=== PATIENT | female | born 1945 | race Caucasian/White ===

== ENCOUNTER 2017-05-03 15:35 | Emergency (ER) | payer MEDICARE, OTHER ==
[2017-05-03 15:59] VITALS: BP 174/72
[2017-05-03] MEDS ORDERED: HYDROmorphone 0.5 MG/0.5 ML Syringe IM ONE (16:12)
--- NOTE | 2017-05-03 17:14 | EDM.PDOC ---
ED HPI GENERAL MEDICAL PROBLEM - General Chief Complaint: Lower Extremity Injury/Pain Stated Complaint: RIGHT HIP PAIN Time Seen by Provider: 05/03/17 15:50 Source of Information: Reports: Patient History Limitations: Reports: No Limitations - History of Present Illness INITIAL COMMENTS - FREE TEXT/NARRATIVE: pt fell on thu and she sat flat on her butt. She did not have alot of pain after the fall. She started to have pain on sat. Today she had trouble getting up and down and was quite uncomfortabl. She is having difficulty putting weight on the rt leg. Onset: Other ( pain started sat. ) Duration: Hour(s): Location: Reports: Lower Extremity, Right, Other ( She also has pain going over the rt buttock like a sciatic pain. ) Associated Symptoms: Reports: No Other Symptoms - Related Data Allergies Allergy/AdvReac Type Severity Reaction Status Date / Time No Known Allergies Allergy Verified 01/17/13 16:52 Home Meds: Home Meds *B-12 Subcutaneous Injection 01/17/13 [History] Aspirin 325 mg PO DAILY 01/17/13 [History] Ezetimibe [Zetia] 10 mg PO DAILY 01/17/13 [History] Latanoprost [Xalatan 0.005% Ophth Soln] 2.5 ml OP DAILY 01/17/13 [History] Levothyroxine 75 mcg PO 01/17/13 [History] Meloxicam [Mobic] 7.5 mg PO DAILY 01/17/13 [History] atorvaSTATin [Lipitor] 80 mg PO BEDTIME 01/17/13 [History] Pantoprazole Sodium [Protonix] 05/03/17 [History] Past Medical History Gastrointestinal History: Reports: GERD Psychiatric History: Reports: None Endocrine/Metabolic History: Reports: Hypothyroidism - Past Surgical History HEENT Surgical History: Reports: Tonsillectomy GI Surgical History: Reports: Cholecystectomy Female Surgical History: Reports: Cystectomy, Hysterectomy Social & Family History - Tobacco Use Smoking Status *Q: Never Smoker Years of Tobacco use: 40 Used Tobacco, but Quit: Yes Month Tobacco Last Used: 2010 Second Hand Smoke Exposure: No - Alcohol Use Days Per Week of Alcohol Use: 7 Number of Drinks Per Day: 2 Total Drinks Per Week: 14 - Recreational Drug Use Recreational Drug Use: No Review of Systems - Review of Systems Review Of Systems: See Below Constitutional: Reports: No Symptoms Eyes: Reports: No Symptoms Ears: Reports: No Symptoms Nose: Reports: No Symptoms Mouth/Throat: Reports: No Symptoms Respiratory: Reports: No Symptoms Cardiovascular: Reports: No Symptoms GI/Abdominal: Reports: No Symptoms Genitourinary: Reports: No Symptoms Musculoskeletal: Reports: No Symptoms Skin: Reports: No Symptoms ED EXAM, GENERAL - Physical Exam Exam: See Below Free Text/Narrative:: pt arrived with pain in rt hip area and pain over the rt buttock. Exam Limited By: No Limitations General Appearance: Alert, Anxious, Moderate Distress Ears: Normal TMs Nose: Normal Inspection Throat/Mouth: Normal Inspection Head: Atraumatic Neck: Normal Inspection Respiratory/Chest: No Respiratory Distress Cardiovascular: Regular Rate, Rhythm GI/Abdominal: Soft, Non-Tender Rectal (Female) Exam: Deferred Back Exam: Normal Inspection Extremities: Other (pt is tender over the sciatic area in the rt . She is not particularly tender over the rt hip capsule. She is able to straight leg raise the rt leg with some pain but not real severe. i) Neurological: Alert, Oriented Course - Vital Signs Last Recorded V/S: Last Vital Signs Temp 37.1 C 05/03/17 16:14 Pulse 91 05/03/17 16:14 Resp 16 05/03/17 16:14 BP 174/72 H 05/03/17 16:14 Pulse Ox 94 L 05/03/17 16:14 - Orders/Labs/Meds Orders: Active Orders 24 hr Category Date Time Status Hip Min 2V or 3V w Pelvis Rt [CR] Stat Exams 05/03/17 16:08 Taken Lumbar Spine Min 4V [CR] Stat Exams 05/03/17 16:11 Taken Meds: Medications Discontinued Medications Generic Name Dose Route Start Last Admin Trade Name Freq PRN Reason Stop Dose Admin Hydromorphone HCl 0.5 mg 05/03/17 16:12 05/03/17 16:18 Dilaudid IM 05/03/17 16:13 0.5 mg ONETIME ONE Administration - Re-Assessments/Exams Free Text/Narrative Re-Assessment/Exam: 05/03/17 17:33 rt hip has been pinned. There is no evidence of fracture in the hip or pelvis. lumbar spine was evaluated and there were no compression fractures present. she was given dilaudid .5 and had fair relif with that. Departure - Departure Time of Disposition: 17:15 Disposition: Home, Self-Care 01 Condition: Fair Clinical Impression: Sciatic nerve pain, Contusion of right hip - Discharge Information Instructions: Hip Pain, Sciatica Referrals: Josefina Michaels NP [Primary Care Provider] - Forms: ED Department Discharge Care Plan Goals: moist warm packs to hip and rt lower back, flexeril 10mg hs for spasm. [facility] [place] 5/ 326 q6h prn for pain, If pain is persistent suggest checking with Dr Jarvis. - My Orders Last 24 Hours: My Active Orders 05/03/17 16:08 Hip Min 2V or 3V w Pelvis Rt [CR] Stat 05/03/17 16:11 Lumbar Spine Min 4V [CR] Stat - Assessment/Plan Last 24 Hours: My Active Orders 05/03/17 16:08 Hip Min 2V or 3V w Pelvis Rt [CR] Stat 05/03/17 16:11 Lumbar Spine Min 4V [CR] Stat
--- NOTE | 2017-05-04 09:16 | CR ---
Lumbar Spine Min 4V HISTORY: pain over rt buttock FINDINGS: At L4-5 there is approximately 5 mm anterior subluxation. Fairly prominent narrowing of the disc space is present at L4-5. There is also narrowing of the disc space at L5-S1 and mild narrowing at L3-4. Small anterior aspects can be seen in each level L2-3 through L5-S1. There is no compressio n fracture. Scattered facet arthropathy is present. Pars interarticularis defects cannot be definitel y identified on the oblique views. Prominent atherosclerotic calcification is seen in the distal abdo cl aorta. There is no aneurysmal dilatation. IMPRESSION: 1. Degenerative and hypertrophic changes lumbar spine. 2. Grade 1 spondylolisthesis L4-5. 3. Prominent atherosclerotic calcification is noted diffusely along the abdominal aorta.
--- NOTE | 2017-05-04 09:21 | CR ---
Hip Min 2V or 3V w Pelvis Rt HISTORY: severe hip pain. FINDINGS: Bony structures are osteopenic. There is plate and screw fixation of an old healed subtroch anteric fracture proximal right femur. Degenerative narrowing at the right hip joint is seen with sma ll acetabular osteophytes. No acute fracture or dislocation can be identified. I see no joint effusio n. IMPRESSION: Old healed right hip fracture with internal fixation. Osteopenia. Moderate degenerative c hanges right hip. No acute fracture or dislocation is identified.
== END 2017-05-03 17:53 | disposition home or self-care (01) ==
LOC: JP.ED 15:35
DX: S70.01XA Contusion of right hip, initial encounter (principal); Z79.899 Other long term (current) drug therapy; Z79.82 Long term (current) use of aspirin; W19.XXXA Unspecified fall, initial encounter
CPT/HCPCS: 72110; 73502; 96372; 99284; J1170; 99283

== ENCOUNTER 2017-05-05 10:53 | Emergency (ER) | payer MEDICARE, OTHER ==
[2017-05-05] MEDS ORDERED: HYDROmorphone 0.5 MG/0.5 ML Syringe IM ONE (12:10)
[2017-05-05] MEDS ORDERED: HYDROmorphone 0.5 MG/0.5 ML Syringe IVPUSH ONE (12:10)
[2017-05-05] MEDS ORDERED: HYDROmorphone 0.5 MG/0.5 ML Syringe ONE (12:16)
[2017-05-05 17:18] VITALS: BP 167/87
--- NOTE | 2017-05-06 09:19 | CR ---
Lumbar Spine 2 or 3V HISTORY: PAIN FINDINGS: Flexion and extension views of the lumbar spine are compared with lumbar spine exam dated 07/04/2016. Redemonstrated is grade 1 spondylolisthesis at L4-5 and L5-S1 with 5-6 mm anterior subluxa tion at each level. Alignment remains stable with flexion and extension. No compression fracture is i dentified. Degenerative disc space narrowing is noted at L3-4, L4-5, and L5-S1. Small anterior osteop hytes are present diffusely. Remainder of the lumbar spine is stable. Prominent atherosclerotic calci fication seen diffusely along the lower thoracic and abdominal aorta extending into the common iliac arteries. IMPRESSION: Grade 1 spondylolisthesis at L4-5 and L5-S1 appears similar to the exam of 05/03/2017. I see no significant change in subluxation with flexion and extension.
== END 2017-05-05 17:18 | disposition home or self-care (01) ==
LOC: JP.ED 10:53
DX: S70.01XA Contusion of right hip, initial encounter (principal); M51.9 Unspecified thoracic, thoracolumbar and lumbosacral intervertebral disc disorder; E03.9 Hypothyroidism, unspecified; E78.00 Pure hypercholesterolemia, unspecified; W19.XXXA Unspecified fall, initial encounter
CPT/HCPCS: 36415; 72100; 80048; 96374; 99284; J1170; 99283

== ENCOUNTER 2017-05-19 16:52 | Inpatient (IN) | payer MEDICARE, OTHER ==
[2017-05-19] MEDS ORDERED: Sennosides 8.6 MG Tab PO PRN (17:10)
[2017-05-19] MEDS ORDERED: Naloxone 0.4 MG/ML SDV IVPUSH PRN (17:10)
[2017-05-19] MEDS ORDERED: Ondansetron 4 MG/2 ML SDV IVPUSH PRN (17:10)
[2017-05-19] MEDS ORDERED: Aluminum Hydroxide/Magnesium Hydroxide/Simethicone Susp 30 ML Cup PO PRN (17:10)
[2017-05-19] MEDS ORDERED: Sodium Chloride 0.9% 10 ML Syringe FLUSH PRN (17:10)
[2017-05-19] MEDS ORDERED: diphenhydrAMINE 25 MG Cap PO PRN (17:10)
[2017-05-19] MEDS ORDERED: Sodium Chloride 0.9% 1,000 ML IV SCH (17:15)
--- NOTE | 2017-05-19 17:44 | PCM.HP ---
H&P History of Present Illness - General Admit Problem/Dx: Admission Diagnosis/Problem Admission Diagnosis/Problem Lumbar back pain with radiculopathy affecting left lower extremity Source of Information: Patient History Limitations: Reports: No Limitations - History of Present Illness Onset of Symptoms: Reports: Gradual Duration of Symptoms: Reports: Week(s): Location: Reports: Lower Extremity, Left, Lower Extremity, Right Quality: Reports: Ache, Pressure, Sharp, Stabbing Severity: Severe Improves with: Reports: None Worsens with: Reports: Movement - Related Data Allergies/Adverse Reactions: Allergies Allergy/AdvReac Type Severity Reaction Status Date / Time No Known Allergies Allergy Verified 05/07/17 11:05 Home Medications: Home Meds Ezetimibe [Zetia] 10 mg PO DAILY 01/17/13 [History] Latanoprost [Xalatan 0.005% Ophth Soln] 1 drop EYERT DAILY 01/17/13 [History] Levothyroxine 75 mcg PO DAILY 01/17/13 [History] Meloxicam [Mobic] 7.5 mg PO DAILY 01/17/13 [History] atorvaSTATin [Lipitor] 80 mg PO BEDTIME 01/17/13 [History] Pantoprazole Sodium [Protonix] 20 mg PO DAILY 05/03/17 [History] Acetaminophen [Tylenol Extra Strength] 1,000 mg PO Q8H PRN 05/06/17 [History] Acetaminophen/HYDROcodone [[place] 325-5 MG] 1 tab PO Q6H PRN 05/06/17 [History] Cyanocobalamin (Vitamin B12) [Vitamin B12] 1,000 mcg IM .MONTHLY 05/06/17 [ History] Hydrochlorothiazide [Hydrochlorothiazide] 25 mg PO DAILY 05/06/17 [History] Past Medical History Gastrointestinal History: Reports: GERD Musculoskeletal History: Reports: Back Pain, Chronic Psychiatric History: Reports: None Endocrine/Metabolic History: Reports: Hypothyroidism - Past Surgical History HEENT Surgical History: Reports: Tonsillectomy GI Surgical History: Reports: Cholecystectomy Female Surgical History: Reports: Cystectomy, Hysterectomy Social & Family History - Tobacco Use Smoking Status *Q: Former Smoker Years of Tobacco use: 40 Used Tobacco, but Quit: Yes Month Tobacco Last Used: 13 years ago Second Hand Smoke Exposure: No - Caffeine Use Caffeine Use: Reports: None - Alcohol Use Days Per Week of Alcohol Use: 3 Number of Drinks Per Day: 1 Total Drinks Per Week: 3 - Recreational Drug Use Recreational Drug Use: No H&P Review of Systems - Review of Systems: Review Of Systems: See Below General: Reports: No Symptoms HEENT: Reports: No Symptoms Pulmonary: Reports: No Symptoms Cardiovascular: Reports: No Symptoms Gastrointestinal: Reports: No Symptoms Genitourinary: Reports: No Symptoms Musculoskeletal: Reports: Back Pain, Leg Pain, Muscle Pain, Muscle Stiffness Skin: Reports: No Symptoms Psychiatric: Reports: No Symptoms Neurological: Reports: No Symptoms Hematologic/Lymphatic: Reports: No Symptoms Immunologic: Reports: No Symptoms Exam - Exam Exam: See Below - Vital Signs Vital Signs: Last Vital Signs Temp 99.1 F 05/19/17 17:10 Pulse Resp 16 05/19/17 17:10 BP 121/53 L 05/19/17 17:10 Pulse Ox 95 05/19/17 17:10 Weight: 160 lb 14.999 oz - Exam General: Alert, Oriented HEENT: PERRLA, Conjunctiva Clear, Hearing Intact, Mucosa Moist & [place], Pupils Equal, Pupils Reactive Neck: Supple, Trachea Midline Lungs: Normal Respiratory Effort Back Exam: Normal Inspection, Decreased Range of Motion Extremities: Normal Inspection, Leg Pain, Limited Range of Motion Peripheral Pulses: 2+: Dorsalis Pedis (L), Dorsalis Pedis (R) Skin: Warm, Dry, Intact Neurological: Cranial Nerves Intact Neuro Extensive - Mental Status: Alert, Oriented x3, Normal Mood/Affect, Normal Cognition Neuro Extensive - Motor, Sensory, Reflexes: Abnormal Gait Psychiatric: Alert, Normal Affect Physical Exam Comments:: Normal sensation in bilateral lower extremities. Clonus negative. Torres's negative. Right straight leg raise positive. Left straight leg raise negative. Right hip flexion and knee extension 4 minus out of 5. *Q Meaningful Use (ADM) - VTE *Q VTE Criteria *Q: - Stroke *Q Stroke Criteria *Q: - AMI *Q AMI Criteria *Q: - Problem List (1) Spinal stenosis of lumbar region without neurogenic claudication SNOMED Code(s): 94436939 ICD Code: M48.061 - SPINAL STENOSIS, LUMBAR REGION WITHOUT NEUROGENIC KAYLEEN Status: Acute Current Visit: No (2) Spondylolisthesis, lumbar region SNOMED Code(s): 849405683223802 ICD Code: M43.16 - SPONDYLOLISTHESIS, LUMBAR REGION Status: Acute Current Visit: No Problem List Initiated/Reviewed/Updated: Yes Orders Last 24hrs: Active Orders 24 hr Category Date Time Status Patient Status [ADT] Routine ADT 05/19/17 17:05 Active Blood Glucose Check, Bedside [RC] QIDACANDBED Care 05/19/17 17:10 Active EKG Documentation Completion [RC] ASDIRECTED Care 05/19/17 17:25 Active Insert Urinary Catheter [OM.PC] ONETIME Care 05/19/17 17:15 Ordered Insert Urinary Catheter [OM.PC] ONETIME Care 05/20/17 17:15 Ordered Notify Provider Consults [RC] ASDIRECTED Care 05/19/17 17:16 Active Oxygen Therapy [RC] PRN Care 05/19/17 17:05 Active Peripheral IV Care [RC] . DIRECTED Care 05/19/17 17:11 Active RT BiPAP/CPAP [RC] ASDIRECTED Care 05/19/17 17:05 Active Turn, Cough, Deep Breathe [RC] .PRN Care 05/19/17 17:05 Active Urinary Catheter Assessment [RC] ASDIRECTED Care 05/19/17 17:08 Active Consult to Physician [CONS] Routine Cons 05/19/17 17:10 Ordered NPO After Midnight [Nothing per Oral After Midnight Diet 05/20/17 Breakfast Active Diet] [DIET] Regular Diet [DIET] Diet 05/19/17 Dinner Active CBC WITH AUTO DIFF [HEME] Stat Lab 05/19/17 17:10 Ordered COMPREHENSIVE METABOLIC PN,CMP [CHEM] Routine Lab 05/19/17 17:24 Ordered Alum Hydrox/Mag Hydrox/Simeth [Mag-Al Plus] Med 05/19/17 17:10 Ordered 15 ml PO Q4H PRN Ezetimibe [Zetia] Med 05/20/17 09:00 Ordered 10 mg PO DAILY Hydrochlorothiazide Med 05/20/17 09:00 Ordered 25 mg PO DAILY Latanoprost [Xalatan 0.005% Ophth Soln] Med 05/20/17 09:00 Ordered DOSE ml EYERT DAILY Levothyroxine Med 05/20/17 09:00 Ordered 75 mcg PO DAILY Magnesium Hydroxide [Milk of Magnesia] Med 05/19/17 17:10 Ordered 30 ml PO DAILY PRN Morphine Med 05/19/17 17:10 Ordered 2 mg IVPUSH Q2H PRN Naloxone [Narcan] Med 05/19/17 17:10 Ordered 0.2 mg IVPUSH ONETIME PRN Ondansetron [Zofran] Med 05/19/17 17:10 Ordered 4 mg IVPUSH Q4H PRN Pantoprazole Sodium [Protonix] Med 05/20/17 09:00 Ordered 20 mg PO DAILY Sennosides [Senna] Med 05/19/17 17:10 Ordered 8.6 mg PO BID PRN Sodium Chloride 0.9% [Normal Saline] 1,000 ml Med 05/19/17 17:15 Ordered IV .BOLUS Sodium Chloride 0.9% [Saline Flush] Med 05/19/17 17:10 Ordered 10 ml FLUSH ASDIRECTED PRN atorvaSTATin [Lipitor] Med 05/19/17 21:00 Ordered 80 mg PO BEDTIME diphenhydrAMINE [Benadryl] Med 05/19/17 17:10 Ordered 25 mg PO Q4H PRN Antiembolic Hose [OM.PC] Routine Oth 05/19/17 17:05 Ordered DME for Inpatients [OM.PC] Routine Oth 05/19/17 17:05 Ordered Encourage Fluids [OM.PC] Routine Oth 05/19/17 17:05 Ordered Peripheral IV Insertion Adult [OM.PC] Routine Oth 05/19/17 17:10 Ordered Sequential Compression Device [OM.PC] Routine Oth 05/19/17 17:05 Ordered Resuscitation Status Routine Resus Stat 05/19/17 17:05 Ordered EKG 12 Lead [EK] Routine Ther 05/19/17 17:24 Ordered Medication Orders Al Hydroxide/Mg Hydroxide (Mag-Al Plus) 15 ml PO Q4H PRN PRN Reason: Indigestion Diphenhydramine HCl (Benadryl) 25 mg PO Q4H PRN PRN Reason: Itching Ezetimibe (Zetia) 10 mg PO DAILY CARMEN Hydrochlorothiazide (Hydrochlorothiazide) 25 mg PO DAILY CARMEN Sodium Chloride (Normal Saline) 1,000 mls @ 75 mls/hr IV .BOLUS CRAMEN Latanoprost (Xalatan 0.005% Ophth Soln) ml EYERT DAILY CARMEN Levothyroxine Sodium (Levothyroxine) 75 mcg PO DAILY CARMEN Magnesium Hydroxide (Milk Of Magnesia) 30 ml PO DAILY PRN PRN Reason: Constipation Morphine Sulfate (Morphine) 2 mg IVPUSH Q2H PRN PRN Reason: Pain Naloxone HCl (Narcan) 0.2 mg IVPUSH ONETIME PRN PRN Reason: Oversedation Non-Formulary Medication (Atorvastatin [Lipitor]) 80 mg PO BEDTIME CARMEN Non-Formulary Medication (Pantoprazole Sodium [Protonix]) 20 mg PO DAILY CARMEN Ondansetron HCl (Zofran) 4 mg IVPUSH Q4H PRN PRN Reason: Nausea/Vomiting Senna (Senna) 8.6 mg PO BID PRN PRN Reason: Constipation Sodium Chloride (Saline Flush) 10 ml FLUSH ASDIRECTED PRN PRN Reason: Keep Vein Open Assessment/Plan Comment:: Assessment: Lumbar stenosis L3-4, L4-5, and L5-S1. Lumbar spondylolisthesis L4- 5 and L5-S1. Right lower extremity lumbar radiculopathy. Plan: After seeing the patient in clinic she did have an epidural steroid injection which only lasted for a short period of time. It did not help significantly. She was scheduled for an epidural steroid injection tomorrow. The pain was so bad that she could not walk. She was brought by squad to the hospital. I've admitted her for pain management overnight we will proceed with a posterior lumbar fusion from L3-S1 tomorrow morning. Will obtain preoperative laboratory testing as well as EKG. I have asked Dr. Torres to evaluate her preoperatively. She'll be nothing by mouth at midnight. I've explained the risks and benefits of the procedure to the patient. I've given her a lumbar consent to review. Also given her a lumbar spine packet. Will fit her for a brace after surgery tomorrow.
[2017-05-19] MEDS ORDERED: Potassium Chloride 20 MEQ Tab.ER PO ONE (19:09)
--- NOTE | 2017-05-19 19:15 | PCM.PN ---
- General Info Date of Service: 05/19/17 Functional Status: Reports: Tolerating Diet - Review of Systems Musculoskeletal: Reports: Back Pain, Leg Pain Systems Review Comment:: Margareth was admitted today for management of acute lower back pain and inability to walk because of the severity of the pain. She reports one week of progressive severe sharp pain in the middle of her lower back that radiates down the right leg. She has been taking [id number] medications as well as prescription nonsteroidals without any improvement. She has cut back on eating and drinking to avoid trips to the bathroom because of the severity of the pain. The pain has been progressively getting worse over the past week. She is not aware of any fevers or chills. She does not have any incontinence. Some recent difficulties with constipation though bowels have been moving better the past 2 days. No previous difficulties with anesthesia or surgical procedures. Functional status had been acceptable prior to the acute lower back pain that has limited her ability to get around. No shortness of breath or cough. - Patient Data Vitals - Most Recent: Last Vital Signs Temp 37.3 C 05/19/17 17:10 Pulse Resp 16 05/19/17 17:10 BP 121/53 L 05/19/17 17:10 Pulse Ox 95 05/19/17 17:10 Weight - Most Recent: 73 kg Lab Results Last 24 Hours: Laboratory Results - last 24 hr 05/19/17 05/19/17 Range/Units 17:45 17:45 WBC 11.2 H (4.5-11.0) K/uL RBC 4.59 (3.30-5.50) M/uL Hgb 15.5 H D (12.0-15.0) g/dL Hct 44.8 (36.0-48.0) % MCV 98 (80-98) fL MCH 34 H (27-31) pg MCHC 35 (32-36) % Plt Count 225 (150-400) K/uL Neut % (Auto) 76 H (36-66) % Lymph % (Auto) 12 L (24-44) % [place] % (Auto) 11 H (2-6) % Eos % (Auto) 1 L (2-4) % Baso % (Auto) 0 (0-1) % Sodium 137 L (140-148) mmol/L Potassium 3.3 L (3.6-5.2) mmol/L Chloride 94 L (100-108) mmol/L Carbon Dioxide 35 H (21-32) mmol/L Anion Gap 11.3 (5.0-14.0) mmol/L BUN 21 H (7-18) mg/dL Creatinine 0.7 (0.6-1.0) mg/dL Est Cr Clr Drug Dosing 60.09 mL/min Estimated GFR (MDRD) > 60 (>60) Glucose 122 H (74-106) mg/dL Calcium 9.3 (8.5-10.1) mg/dL Total Bilirubin 1.2 H D (0.2-1.0) mg/dL AST 93 H D (15-37) U/L ALT 193 H (12-78) U/L Alkaline Phosphatase 116 (46-116) U/L Total Protein 7.0 (6.4-8.2) g/dL Albumin 3.7 (3.4-5.0) g/dL Globulin 3.3 (2.3-3.5) g/dL Albumin/Globulin Ratio 1.1 L (1.2-2.2) Med Orders - Current: Current Medications Al Hydroxide/Mg Hydroxide (Mag-Al Plus) 15 ml PO Q4H PRN PRN Reason: Indigestion Atorvastatin Calcium (Lipitor) 80 mg PO BEDTIME CARMEN Diphenhydramine HCl (Benadryl) 25 mg PO Q4H PRN PRN Reason: Itching Ezetimibe (Zetia) 10 mg PO DAILY CARMEN Hydrochlorothiazide (Hydrochlorothiazide) 25 mg PO DAILY CARMEN Sodium Chloride (Normal Saline) 1,000 mls @ 75 mls/hr IV .BOLUS CARMEN Latanoprost (Xalatan 0.005% Oph Soln) 0 ml EYERT DAILY CARMEN Levothyroxine Sodium (Levothyroxine) 75 mcg PO DAILY CARMEN Magnesium Hydroxide (Milk Of Magnesia) 30 ml PO DAILY PRN PRN Reason: Constipation Morphine Sulfate (Morphine) 2 mg IVPUSH Q2H PRN PRN Reason: Pain Naloxone HCl (Narcan) 0.2 mg IVPUSH ONETIME PRN PRN Reason: Oversedation Non-Formulary Medication (Pantoprazole Sodium [Protonix]) 20 mg PO DAILY CARMEN Ondansetron HCl (Zofran) 4 mg IVPUSH Q4H PRN PRN Reason: Nausea/Vomiting Potassium Chloride (Klor-Con M20) 40 meq PO ONETIME ONE Stop: 05/19/17 19:10 Senna (Senna) 8.6 mg PO BID PRN PRN Reason: Constipation Sodium Chloride (Saline Flush) 10 ml FLUSH ASDIRECTED PRN PRN Reason: Keep Vein Open - Exam Quality Assessment: No: Supplemental Oxygen General: Alert, Oriented, Cooperative, No Acute Distress Neck: Supple Lungs: Clear to Auscultation, Normal Respiratory Effort Cardiovascular: Regular Rate, Regular Rhythm, No Murmurs GI/Abdominal Exam: Normal Bowel Sounds, Soft, Non-Tender, No Distention. No: Hepatomegaly Extremities: No Pedal Edema Skin: Warm, Dry Psy/Mental Status: Alert, Normal Affect - Problem List Review Problem List Initiated/Reviewed/Updated: Yes - My Orders Last 24 Hours: My Active Orders 05/19/17 19:09 Potassium Chloride [Klor-Con M20] 40 meq PO ONETIME ONE 05/20/17 07:00 Abdomen Ltd [US] Routine - Plan Plan:: ASSESSMENT AND PLAN - Acute lower back pain with lumbar spinal stenosis, spondylolisthesis and right lower leg radiculopathy - surgical intervention planned with the severity and progression of the pain over the past week. Currently comfortable as long she is resting in bed. No obvious contraindication for surgery and I do believe she is medically optimized at this time other than the mild hypokalemia which we will correct overnight. No history of cardiovascular issues. -Pain control -Patient medically optimized for planned surgical procedure tomorrow once potassium is corrected Hypokalemia - mild at this time and will be replaced overnight. -40 mEq of potassium -Repeat labs in the morning Essential hypertension - blood pressure has been well-controlled. -Continue home medications Transaminitis and elevated bilirubin - relatively mild elevations but new finding. Patient does have a history of consistent alcohol use. She is also on a statin medication. Also history of liver abscess. I think she would benefit from an ultrasound for further evaluation but this should not delay surgery. -Right upper quadrant ultrasound tomorrow Quintin Torres M.D.
[2017-05-19] MEDS: Morphine 4 MG/ML Syringe IVPUSH PRN ×2 (19:33→22:23)
[2017-05-19] MEDS: atorvaSTATin 20 MG Tab PO SCH (20:34)
[2017-05-20] MEDS: Morphine 4 MG/ML Syringe IVPUSH PRN ×2 (01:34→05:12)
[2017-05-20] MEDS ORDERED: Thrombin (Bovine) 5,000 Unit Kit ONE (07:05)
[2017-05-20] MEDS ORDERED: Povidone-Iodine 10% Soln 118.25 ML Bottle ONE (07:05)
[2017-05-20] MEDS ORDERED: Dexamethasone 4 MG/ML SDV ONE (07:30)
[2017-05-20] MEDS ORDERED: Propofol 1,000 MG/100 ML SDV ONE (07:30)
[2017-05-20] MEDS ORDERED: Ondansetron 4 MG/2 ML SDV ONE (07:30)
[2017-05-20] MEDS ORDERED: Propofol 200 MG/20 ML SDV ONE (07:30)
[2017-05-20] MEDS ORDERED: Rocuronium 50 MG/5 ML Vial ONE (07:30)
[2017-05-20] MEDS ORDERED: Sodium Chloride 0.9% 1,000 ML IV ONE (07:30)
[2017-05-20] MEDS ORDERED: fentaNYL 100 MCG/2 ML SDV ONE ×3 (07:30)
[2017-05-20] MEDS ORDERED: Midazolam 1 MG/ML 2 ML SDV ONE (07:30)
[2017-05-20] MEDS ORDERED: fentaNYL 250 MCG/5 ML SDV ONE (07:30)
[2017-05-20] MEDS ORDERED: ceFAZolin 1 GM in Premix Bag 1 BAG IV ONE (08:00)
[2017-05-20] MEDS ORDERED: Ropivacaine 49.25 ML, Ketorolac 30 MG, EPINEPHrine 0.5 MG, cloNIDine 80 MCG, Sodium Chl... INJECT ONE ×5 (08:00)
[2017-05-20] MEDS: Tranexamic Acid 730 MG in Sodium Chloride 0.9% 50 ML IV SCH ×2 (08:01→11:49)
[2017-05-20] MEDS ORDERED: Latanoprost 0.005% Ophth Soln 2.5 ML Bottle EYERT SCH (09:00)
[2017-05-20] MEDS ORDERED: Levothyroxine 75 MCG Tab PO SCH (09:00)
[2017-05-20] MEDS ORDERED: Lactated Ringers 300 ML IV ONE (10:15)
[2017-05-20] MEDS ORDERED: Vancomycin 1 GM SDV ONE (11:02)
[2017-05-20] MEDS ORDERED: Magnesium Hydroxide 400 MG/5 ML Susp 30 ML Cup PO STA (11:33)
[2017-05-20] MEDS ORDERED: HYDROmorphone 1 MG/ML Syringe IVPUSH PRN (11:33)
[2017-05-20] MEDS ORDERED: Aluminum Hydroxide/Magnesium Hydroxide/Simethicone Susp 30 ML Cup PO PRN (11:33)
[2017-05-20] MEDS ORDERED: Naloxone 0.4 MG/ML SDV IVPUSH PRN (11:33)
[2017-05-20] MEDS ORDERED: Zolpidem 5 MG Tab PO PRN (11:33)
[2017-05-20] MEDS ORDERED: Ondansetron 4 MG/2 ML SDV IVPUSH PRN (11:33)
[2017-05-20] MEDS ORDERED: Acetaminophen 1,000 MG in Premix Bag 1 BAG IV ONE (11:45)
[2017-05-20] MEDS ORDERED: Gelatin Sponge,Absorbable Pwd 1 GM Pkt ONE (12:09)
[2017-05-20] MEDS ORDERED: LORazepam 2 MG/ML SDV IVPUSH ONE (12:31)
[2017-05-20] MEDS: Dexamethasone 4 MG/ML 5 ML MDV IVPUSH SCH ×2 (12:44→20:05)
--- NOTE | 2017-05-20 14:10 | OR ---
DATE OF PROCEDURE: 05/20/2017 PREOPERATIVE DIAGNOSES: 1. L3-L4, L4-L5, and L5-S1 lumbar stenosis. 2. Lumbar spondylolisthesis, L4-L5 and L5-S1. 3. Lumbar radiculopathy, L3 through S1. POSTOPERATIVE DIAGNOSES: 1. L3-L4, L4-L5, and L5-S1 lumbar stenosis. 2. Lumbar spondylolisthesis, L4-L5 and L5-S1. 3. Lumbar radiculopathy, L3 through S1. PROCEDURES: 1. Transforaminal lumbar interbody fusion, L4-L5. 2. Posterior lateral fusion with instrumentation, L3-L4, L4-L5, and L5-S1. 3. Laminectomy, required an additional decompression L3-L4, L4-L5, and L5-S1. 4. Right facetectomy, L3-L4, L4-L5 and L5-S1. 5. Use of operative fluoroscopy. 6. Placement of interbody device at L4-L5. 7. Segmental instrumentation L3-L4, L4-L5, and L5-S1. SAP SENIOR DEVELOPER: SALUD Negrete. Physician billing and accounting staff assistant, Jo Ann Colunga NP, played an essential role in assisting in this case, helping to position the patient, retract structures as needed, as well as suturing and cutting sutures as indicated. Her presence improved patient's safety and decreased operative time. ANESTHESIA: General endotracheal intubation. FLUID: Lactated Ringer's solution. ESTIMATED BLOOD LOSS: 450 mL. COMPLICATIONS: None. SPECIMEN: None. DISCHARGE DISPOSITION: Stable to PACU. INDICATIONS: The patient is well known to me. We saw her in clinic. She had fallen about a month ago and we believed we could treat her non operatively. She underwent an epidural steroid injection last week, which really did not help very much. She was bedridden due to pain. We admitted her last night and consented her for the procedure. Preoperative imaging confirmed the above-mentioned diagnosis. Risks and benefits of the procedure were explained to the patient and her and informed consent was obtained. DESCRIPTION OF PROCEDURE: The patient was seen preoperatively by myself and the Anesthesia staff in the preop holding area, where the operative site was marked. She was brought to the operative suite by the Anesthesia staff, where general anesthesia was administered. A Snow catheter had already been placed. The fluoroscopy unit was draped in a sterile manner. The patient then had neuromonitoring leads placed, which were normal throughout the case. She was then flipped into a prone position on the Robin table. All extremities were found to be well padded. The patient was then prepped and draped in sterile manner. Time-out was called identifying the correct patient, correct procedure, the correct site, and antibiotics had begun within appropriate period of time. Midline incision was made over the spinous processes of L3-S1. This was confirmed via fluoroscopy. Bleeding during the case was controlled with Bovie electrocautery, bipolar electrocautery, and Aquamantys 5.0 unit. Cerebellar was initially used for retraction. I then went through the deep fascia over the spinous processes of L3, lamina, facets, pars, and down to the transverse processes and ala of S1. I then inserted two 75 mm and two 65 mm Versa-Trac retractor blades. I then cleared off the soft tissue down to the transverse processes. The bone was poor quality. There was transverse process fracture at the left of the L4 and then on the right L4 as well. We then placed screws on the right side first and then the left. This was done by identifying the pars going at the midpoint of the transverse process, drilling a hole at the level of the lateral aspect of the pars. Then, using a PediGuard from [employer], then confirming its placement on fluoroscopy followed by pedicle probe, followed by tap, followed by pedicle probe, followed by screw placement. All screws were 45 x 6.5 mm screws, [employer] Creo AMP. After doing the left to the right, we then tested our screws which all tested well within normal limits. I then took an AP radiograph to confirm good placement as well. We then focused on our decompressions by removing the interspinous ligaments and supraspinous ligaments, and then removing the inferior aspect of the superior spinous process of each level and then using Kerrison rongeurs approximately half of the lamina of the cranial vertebral lamina and then removing the flavum. I then performed full facetectomies on the right. This was performed using both rongeurs and Kerrisons. The nerve roots were identified at L3-L4, L4-L5, and L5-S1. I was then able to focus on placing the interbody device at L4-L5. I used bipolar electrocautery starting at the cranial aspect of the L5 pedicle as to avoid any nerve root injury. Then working medially and cranially over the disk space. I was then able to use a nerve root retractor to protect the dura. We then entered the disk space with a knife and then removed excess disk material. I used straight upgoing and downgoing and ring curettes. I then packed the interspace cranially with a bone funnel using bone which was grind up for autograft as well as Signify from [employer], which was mixed in with it. I then placed a 10 x 22, 10-degree spacer that expanded from 8 to 15 and expanded this under direct fluoroscopy. Just prior to this, we did encounter a durotomy laterally on the right side just above the axilla of the exiting nerve root. This was repaired with a 6-0 [place]-Jonah suture. Three Valsalvas were performed and 2 confirmed no leak. I then tried to do an interbody at L3-L4. I was able to clean the disk, but then the cranial endplate of L4 fractured, because of this I did not insert an interbody device. I then packed it with both my autograft and allograft mix as well as cancellous bone chips and confirmed that this looked appropriate on AP and lateral fluoroscopy. We then cleaned our screws and inserted 290 mm rods. I did have to bend these and then placed our end caps and then tightened to final torque specifications. We did use a hydropress operator on 2 of the screws on the left at L4 and L5. After this had been completed, we then copiously irrigated with 3 L Betadine infused irrigation, noted blood loss was 450 mL. After the irrigation, we again performed two more Valsalvas to confirm that there was no cerebrospinal fluid leak. We then placed some DuraSeal over the durotomy repair and then I decorticated the transverse processes both on the left and right, and then packed this with her allograft and autograft mix. We then applied some Gel-Foam powder as well as half a gram of vancomycin below the fascia. We then closed with #1 Stratafix, then irrigated with another liter of Betadine infused irrigation using a periarticular injection for pain control and then applied more Gel-Foam and the other half a gram of vancomycin and then closed with #2 Stratafix, then 3-0 Stratafix followed by glue and a sterile dressing. The patient was then flipped over into a supine position on the hospital bed and taken to the PACU in stable condition. Ke Helms DO /[id number]
[2017-05-20] MEDS: oxyCODONE 5 MG Tab PO PRN ×2 (15:05→19:07)
--- NOTE | 2017-05-20 15:23 | US ---
Abdomen Ltd INDICATION: transaminitis, elevated bilirubin COMPARISON: None FINDINGS: Fatty infiltration of the liver. No focal hepatic masses seen. Gallbladder surgically absent. No biliary distention. Abdominal aorta and inferior vena cava are unremarkable where visualized. Fatty infiltration of the pancreas. Right kidney unremarkable. No calculi or hydronephrosis. No ascites seen in the right upper quadrant. IMPRESSION: Fatty infiltration of the liver and pancreas. Gallbladder surgically absent.
[2017-05-20] MEDS ORDERED: Sodium Chloride 0.9% 1,000 ML IV SCH (15:45)
--- NOTE | 2017-05-20 15:57 | PCM.PN ---
- General Info Date of Service: 05/20/17 Functional Status: Reports: Pain Controlled - Review of Systems Gastrointestinal: Denies: Abdominal Pain Musculoskeletal: Reports: Back Pain Systems Review Comment:: no acute events overnight. Had successful surgery this morning with much improvement in her pain. Ultrasound of the abdomen showed fatty liver but no other acute findings. Vital signs have been stable. - Patient Data Vitals - Most Recent: Last Vital Signs Temp 37.6 C 05/20/17 15:07 Pulse 90 05/20/17 15:07 Resp 18 05/20/17 15:07 BP 115/56 L 05/20/17 15:07 Pulse Ox 95 05/20/17 15:07 Weight - Most Recent: 73 kg I&O - Last 24 Hours: Intake & Output 05/20/17 05/20/17 05/20/17 06:59 14:59 22:59 Intake Total 1202 125 Output Total 825 250 Balance 377 -125 Lab Results Last 24 Hours: Laboratory Results - last 24 hr 05/19/17 05/19/17 05/20/17 Range/Units 17:45 17:45 11:30 WBC 11.2 H (4.5-11.0) K/uL RBC 4.59 (3.30-5.50) M/uL Hgb 15.5 H D (12.0-15.0) g/dL Hct 44.8 (36.0-48.0) % MCV 98 (80-98) fL MCH 34 H (27-31) pg MCHC 35 (32-36) % Plt Count 225 (150-400) K/uL Neut % (Auto) 76 H (36-66) % Lymph % (Auto) 12 L (24-44) % Dawson % (Auto) 11 H (2-6) % Eos % (Auto) 1 L (2-4) % Baso % (Auto) 0 (0-1) % Sodium 137 L (140-148) mmol/L Potassium 3.3 L (3.6-5.2) mmol/L Chloride 94 L (100-108) mmol/L Carbon Dioxide 35 H (21-32) mmol/L Anion Gap 11.3 (5.0-14.0) mmol/L BUN 21 H (7-18) mg/dL Creatinine 0.7 (0.6-1.0) mg/dL Est Cr Clr Drug Dosing 60.09 mL/min Estimated GFR (MDRD) > 60 (>60) Glucose 122 H (74-106) mg/dL Calcium 9.3 (8.5-10.1) mg/dL Total Bilirubin 1.2 H D (0.2-1.0) mg/dL AST 93 H D (15-37) U/L ALT 193 H (12-78) U/L Alkaline Phosphatase 116 (46-116) U/L Total Protein 7.0 (6.4-8.2) g/dL Albumin 3.7 (3.4-5.0) g/dL Globulin 3.3 (2.3-3.5) g/dL Albumin/Globulin Ratio 1.1 L (1.2-2.2) Blood Type A POSITIVE Gel Antibody Screen Negative Med Orders - Current: Current Medications Al Hydroxide/Mg Hydroxide (Mag-Al Plus) 30 ml PO Q4H PRN PRN Reason: Indigestion Atorvastatin Calcium (Lipitor) 80 mg PO BEDTIME [facility] Last Admin: 05/19/17 20:34 Dose: 80 mg Dexamethasone (Dexamethasone) 10 mg IVPUSH Q6H [facility] Last Admin: 05/20/17 12:44 Dose: 10 mg Diazepam (Valium.) 5 mg PO Q6H PRN PRN Reason: Spasms Diphenhydramine HCl (Benadryl) 25 mg PO Q4H PRN PRN Reason: Itching Docusate Sodium (Colace) 100 mg PO BID [facility] Ezetimibe (Zetia) 10 mg PO DAILY [facility] Hydrochlorothiazide (Hydrochlorothiazide) 25 mg PO DAILY [facility] Hydromorphone HCl (Dilaudid) 1 mg IVPUSH Q2H PRN PRN Reason: Pain Stop: 05/21/17 11:34 Cefazolin Sodium/Dextrose 1 gm (/ Premix) 50 mls @ 100 mls/hr IV Q8H [facility] Stop: 05/21/17 06:59 Sodium Chloride (Normal Saline) 1,000 mls @ 125 mls/hr IV ASDIRECTED [facility] Latanoprost (Xalatan 0.005% Ophth Soln) 0 ml EYERT BEDTIME [facility] Levothyroxine Sodium (Levothyroxine) 75 mcg PO ACBREAKFAST [facility] Magnesium Hydroxide (Milk Of Magnesia) 30 ml PO DAILY PRN PRN Reason: Constipation Naloxone HCl (Narcan) 0.2 mg IVPUSH ASDIRECTED PRN PRN Reason: Oversedation Stop: 05/20/17 23:00 Ondansetron HCl (Zofran) 8 mg IVPUSH Q4H PRN PRN Reason: Nausea/Vomiting Oxycodone HCl (Oxycodone) 10 mg PO Q4H PRN PRN Reason: Pain Stop: 05/21/17 11:34 Last Admin: 05/20/17 15:05 Dose: 10 mg Oxycodone/Acetaminophen (Percocet 325-5 Mg) 2 tab PO Q4H PRN PRN Reason: Pain Pantoprazole Sodium (Protonix) 40 mg PO ACBREAKFAST [facility] Senna (Senna) 8.6 mg PO BID [facility] Sodium Chloride (Saline Flush) 10 ml FLUSH ASDIRECTED PRN PRN Reason: Keep Vein Open Zolpidem Tartrate (Ambien) 5 mg PO BEDTIME PRN PRN Reason: Sleep Discontinued Medications Ropivacaine 49.25 ml/Ketorolac Tromethamine 30 mg/Epinephrine HCl 0.5 mg/ Clonidine HCl 80 mcg/ Sodium Chloride 48.45 ml 0 ml INJECT ONETIME ONE Stop: 05/20/17 08:01 Last Admin: 05/20/17 08:39 Dose: 50 ml Gelatin (Gelfoam) 2 gm .ROUTE .STK-MED ONE Stop: 05/20/17 12:10 Sodium Chloride (Normal Saline) 1,000 mls @ 75 mls/hr IV .BOLUS [facility] Last Admin: 05/20/17 06:35 Dose: 75 mls/hr Tranexamic Acid 730 mg/ Sodium (Chloride) 57.3 mls @ 229.2 mls/hr IV Q3H [facility] Stop: 05/20/17 11:14 Last Admin: 05/20/17 11:49 Dose: 229.2 mls/hr Cefazolin Sodium/Dextrose 1 gm (/ Premix) 50 mls @ 100 mls/hr IV ONETIME ONE Stop: 05/20/17 08:29 Last Admin: 05/20/17 07:40 Dose: 100 mls/hr Acetaminophen 1,000 mg/ Premix 100 mls @ 400 mls/hr IV NOW ONE Stop: 05/20/17 11:59 Last Admin: 05/20/17 12:07 Dose: 400 mls/hr Lorazepam (Ativan) 1 mg IVPUSH ONETIME ONE Stop: 05/20/17 12:32 Last Admin: 05/20/17 12:38 Dose: 1 mg Magnesium Hydroxide (Milk Of Magnesia) 30 ml PO BID [facility] Stop: 05/20/17 11:34 Morphine Sulfate (Morphine) 2 mg IVPUSH Q2H PRN PRN Reason: Pain Last Admin: 05/20/17 05:12 Dose: 2 mg Naloxone HCl (Narcan) 0.2 mg IVPUSH ONETIME PRN PRN Reason: Oversedation Ondansetron HCl (Zofran) 4 mg IVPUSH Q4H PRN PRN Reason: Nausea/Vomiting Potassium Chloride (Klor-Con M20) 40 meq PO ONETIME ONE Stop: 05/19/17 19:10 Last Admin: 05/19/17 20:34 Dose: 40 meq Povidone Iodine (Betadine 10% Soln) Confirm Administered Dose 1 ml .ROUTE .STK- MED ONE Stop: 05/20/17 07:06 Last Admin: 05/20/17 08:22 Dose: 1 ml Senna (Senna) 8.6 mg PO BID PRN PRN Reason: Constipation Thrombin (Thrombin-Jmi) Confirm Administered Dose 15,000 unit .ROUTE .STK-MED ONE Stop: 05/20/17 07:06 Last Admin: 05/20/17 08:22 Dose: 15,000 unit Vancomycin HCl (Vancomycin) Confirm Administered Dose 1 gm .ROUTE .STK-MED ONE Stop: 05/20/17 11:03 - Exam Quality Assessment: No: Supplemental Oxygen General: Alert, Oriented, Cooperative, No Acute Distress Lungs: Normal Respiratory Effort GI/Abdominal Exam: No Distention Extremities: No Pedal Edema - Problem List Review Problem List Initiated/Reviewed/Updated: Yes - My Orders Last 24 Hours: My Active Orders 05/19/17 23:28 Heat Therapy [OM.PC] Routine - Plan Plan:: ASSESSMENT AND PLAN - Acute lower back pain with lumbar spinal stenosis, spondylolisthesis and right lower leg radiculopathy - pain and function better even shortly after surgical intervention. -Pain control -additional postop cares per orthopedic team Hypokalemia - better with supplementation -recheck in the morning Essential hypertension - blood pressure has been well-controlled. -Continue home medications Hepatic steatosis - relatively mild elevations but new finding. no acute findings on ultrasound. -Outpatient follow-up Quintin Torres M.D.
[2017-05-20] MEDS: ceFAZolin 1 GM in Premix Bag 1 BAG IV SCH ×2 (16:29→23:18)
[2017-05-20] MEDS: Hydrochlorothiazide 25 MG Tab PO SCH (16:39)
[2017-05-20] MEDS: Pantoprazole 40 MG Tab.CR PO SCH (16:39)
[2017-05-20] MEDS: Levothyroxine 75 MCG Tab PO SCH (16:41)
[2017-05-20] MEDS: Ezetimibe 10 MG Tab PO SCH (16:42)
[2017-05-20] MEDS: Magnesium Hydroxide 400 MG/5 ML Susp 30 ML Cup PO PRN (17:43)
[2017-05-20] MEDS: Acetaminophen 1,000 MG in Premix Bag 1 BAG IV SCH (17:43)
[2017-05-20] MEDS: atorvaSTATin 20 MG Tab PO SCH (20:04)
[2017-05-20] MEDS: Sennosides 8.6 MG Tab PO SCH (20:04)
[2017-05-20] MEDS: Docusate Sodium 100 MG Cap PO SCH (20:04)
[2017-05-20] MEDS: Latanoprost 0.005% Ophth Soln 2.5 ML Bottle EYERT SCH (20:05)
[2017-05-21] MEDS: Dexamethasone 4 MG/ML 5 ML MDV IVPUSH SCH ×4 (00:45→19:52)
[2017-05-21] MEDS: Acetaminophen 1,000 MG in Premix Bag 1 BAG IV SCH ×2 (00:46→05:50)
[2017-05-21] MEDS: oxyCODONE 5 MG Tab PO PRN ×2 (02:04→07:53)
[2017-05-21] MEDS: Diazepam 5 MG Tab PO PRN ×4 (02:36→23:42)
[2017-05-21] MEDS: ceFAZolin 1 GM in Premix Bag 1 BAG IV SCH (06:12)
[2017-05-21] MEDS: Levothyroxine 75 MCG Tab PO SCH (08:26)
[2017-05-21] MEDS: Pantoprazole 40 MG Tab.CR PO SCH (08:26)
[2017-05-21] MEDS: Sennosides 8.6 MG Tab PO SCH ×2 (08:33→21:15)
[2017-05-21] MEDS: Hydrochlorothiazide 25 MG Tab PO SCH (08:33)
[2017-05-21] MEDS: Docusate Sodium 100 MG Cap PO SCH ×2 (08:33→21:10)
--- NOTE | 2017-05-21 08:33 | PCM.PN ---
- General Info Functional Status: Reports: Pain Controlled - Review of Systems General: Reports: No Symptoms HEENT: Reports: No Symptoms Pulmonary: Reports: No Symptoms Cardiovascular: Reports: No Symptoms Gastrointestinal: Reports: No Symptoms Genitourinary: Reports: No Symptoms Musculoskeletal: Reports: Back Pain, Leg Pain Skin: Reports: No Symptoms Neurological: Reports: No Symptoms Psychiatric: Reports: No Symptoms - Patient Data Vitals - Most Recent: Last Vital Signs Temp 98.0 F 05/21/17 08:04 Pulse 90 05/21/17 08:04 Resp 18 05/21/17 08:04 BP 120/59 L 05/21/17 08:04 Pulse Ox 93 L 05/21/17 08:04 Weight - Most Recent: 160 lb 14.999 oz I&O - Last 24 Hours: Intake & Output 05/20/17 05/21/17 05/21/17 22:59 06:59 14:59 Intake Total 885 2431 Output Total 250 400 Balance 635 2031 Lab Results Last 24 Hours: Laboratory Results - last 24 hr 05/20/17 05/21/17 05/21/17 Range/Units 11:30 05:00 05:00 WBC 14.0 H (4.5-11.0) K/uL RBC 3.03 L (3.30-5.50) M/uL Hgb 10.0 L D (12.0-15.0) g/dL Hct 30.2 L (36.0-48.0) % MCV 100 H (80-98) fL MCH 33 H (27-31) pg MCHC 33 (32-36) % Plt Count 190 (150-400) K/uL Neut % (Auto) 91 H (36-66) % Lymph % (Auto) 3 L (24-44) % Graham % (Auto) 6 (2-6) % Eos % (Auto) 0 L (2-4) % Baso % (Auto) 0 (0-1) % Sodium 136 L (140-148) mmol/L Potassium 3.7 (3.6-5.2) mmol/L Chloride 99 L (100-108) mmol/L Carbon Dioxide 31 (21-32) mmol/L Anion Gap 9.7 (5.0-14.0) mmol/L BUN 19 H (7-18) mg/dL Creatinine 0.6 (0.6-1.0) mg/dL Est Cr Clr Drug Dosing 70.11 mL/min Estimated GFR (MDRD) > 60 (>60) Glucose 166 H (74-106) mg/dL Calcium 8.2 L (8.5-10.1) mg/dL Blood Type A POSITIVE Gel Antibody Screen Negative Med Orders - Current: Current Medications Al Hydroxide/Mg Hydroxide (Mag-Al Plus) 30 ml PO Q4H PRN PRN Reason: Indigestion Atorvastatin Calcium (Lipitor) 80 mg PO BEDTIME [facility] Last Admin: 05/20/17 20:04 Dose: 80 mg Dexamethasone (Dexamethasone) 10 mg IVPUSH Q6H [facility] Last Admin: 05/21/17 08:24 Dose: 10 mg Diazepam (Valium.) 5 mg PO Q6H PRN PRN Reason: Spasms Last Admin: 05/21/17 02:36 Dose: 5 mg Diphenhydramine HCl (Benadryl) 25 mg PO Q4H PRN PRN Reason: Itching Docusate Sodium (Colace) 100 mg PO BID [facility] Last Admin: 05/20/17 20:04 Dose: 100 mg Ezetimibe (Zetia) 10 mg PO DAILY [facility] Last Admin: 05/20/17 16:42 Dose: 10 mg Hydrochlorothiazide (Hydrochlorothiazide) 25 mg PO DAILY [facility] Last Admin: 05/20/17 16:39 Dose: 25 mg Hydromorphone HCl (Dilaudid) 1 mg IVPUSH Q2H PRN PRN Reason: Pain Stop: 05/21/17 11:34 Last Admin: 05/20/17 17:38 Dose: 1 mg Sodium Chloride (Normal Saline) 1,000 mls @ 125 mls/hr IV ASDIRECTED [facility] Latanoprost (Xalatan 0.005% Ophth Soln) 0 ml EYERT BEDTIME [facility] Last Admin: 05/20/17 20:05 Dose: 1 drop Levothyroxine Sodium (Levothyroxine) 75 mcg PO ACBREAKFAST [facility] Last Admin: 05/21/17 08:26 Dose: 75 mcg Magnesium Hydroxide (Milk Of Magnesia) 30 ml PO DAILY PRN PRN Reason: Constipation Last Admin: 05/20/17 17:43 Dose: 30 ml Ondansetron HCl (Zofran) 8 mg IVPUSH Q4H PRN PRN Reason: Nausea/Vomiting Oxycodone HCl (Oxycodone) 10 mg PO Q4H PRN PRN Reason: Pain Stop: 05/21/17 11:34 Last Admin: 05/21/17 07:53 Dose: 10 mg Oxycodone/Acetaminophen (Percocet 325-5 Mg) 2 tab PO Q4H PRN PRN Reason: Pain Pantoprazole Sodium (Protonix) 40 mg PO ACBREAKFAST [facility] Last Admin: 05/21/17 08:26 Dose: 40 mg Senna (Senna) 8.6 mg PO BID [facility] Last Admin: 05/20/17 20:04 Dose: 8.6 mg Sodium Chloride (Saline Flush) 10 ml FLUSH ASDIRECTED PRN PRN Reason: Keep Vein Open Zolpidem Tartrate (Ambien) 5 mg PO BEDTIME PRN PRN Reason: Sleep Discontinued Medications Ropivacaine 49.25 ml/Ketorolac Tromethamine 30 mg/Epinephrine HCl 0.5 mg/ Clonidine HCl 80 mcg/ Sodium Chloride 48.45 ml 0 ml INJECT ONETIME ONE Stop: 05/20/17 08:01 Last Admin: 05/20/17 08:39 Dose: 50 ml Gelatin (Gelfoam) 2 gm .ROUTE .STK-MED ONE Stop: 05/20/17 12:10 Sodium Chloride (Normal Saline) 1,000 mls @ 75 mls/hr IV .BOLUS [facility] Last Admin: 05/20/17 06:35 Dose: 75 mls/hr Tranexamic Acid 730 mg/ Sodium (Chloride) 57.3 mls @ 229.2 mls/hr IV Q3H [facility] Stop: 05/20/17 11:14 Last Admin: 05/20/17 11:49 Dose: 229.2 mls/hr Cefazolin Sodium/Dextrose 1 gm (/ Premix) 50 mls @ 100 mls/hr IV ONETIME ONE Stop: 05/20/17 08:29 Last Admin: 05/20/17 07:40 Dose: 100 mls/hr Acetaminophen 1,000 mg/ Premix 100 mls @ 400 mls/hr IV NOW ONE Stop: 05/20/17 11:59 Last Admin: 05/20/17 12:07 Dose: 400 mls/hr Cefazolin Sodium/Dextrose 1 gm (/ Premix) 50 mls @ 100 mls/hr IV Q8H [facility] Stop: 05/21/17 06:59 Last Admin: 05/21/17 06:12 Dose: 100 mls/hr Acetaminophen 1,000 mg/ Premix 100 mls @ 400 mls/hr IV Q6H [facility] Stop: 05/21/17 06:01 Last Admin: 05/21/17 05:50 Dose: 400 mls/hr Lorazepam (Ativan) 1 mg IVPUSH ONETIME ONE Stop: 05/20/17 12:32 Last Admin: 05/20/17 12:38 Dose: 1 mg Magnesium Hydroxide (Milk Of Magnesia) 30 ml PO BID [facility] Stop: 05/20/17 11:34 Last Admin: 05/20/17 17:43 Dose: 30 ml Morphine Sulfate (Morphine) 2 mg IVPUSH Q2H PRN PRN Reason: Pain Last Admin: 05/20/17 05:12 Dose: 2 mg Naloxone HCl (Narcan) 0.2 mg IVPUSH ONETIME PRN PRN Reason: Oversedation Naloxone HCl (Narcan) 0.2 mg IVPUSH ASDIRECTED PRN PRN Reason: Oversedation Stop: 05/20/17 23:00 Ondansetron HCl (Zofran) 4 mg IVPUSH Q4H PRN PRN Reason: Nausea/Vomiting Potassium Chloride (Klor-Con M20) 40 meq PO ONETIME ONE Stop: 05/19/17 19:10 Last Admin: 05/19/17 20:34 Dose: 40 meq Povidone Iodine (Betadine 10% Soln) Confirm Administered Dose 1 ml .ROUTE .STK- MED ONE Stop: 05/20/17 07:06 Last Admin: 05/20/17 08:22 Dose: 1 ml Senna (Senna) 8.6 mg PO BID PRN PRN Reason: Constipation Thrombin (Thrombin-Jmi) Confirm Administered Dose 15,000 unit .ROUTE .STK-MED ONE Stop: 05/20/17 07:06 Last Admin: 05/20/17 08:22 Dose: 15,000 unit Vancomycin HCl (Vancomycin) Confirm Administered Dose 1 gm .ROUTE .STK-MED ONE Stop: 05/20/17 11:03 - Exam General: Alert, Oriented HEENT: Pupils Equal, Pupils Reactive, Mucous Membr. Moist/[place] Neck: Supple Lungs: Normal Respiratory Effort Cardiovascular: Regular Rate Back Exam: Muscle Spasm, Paraspinal Tenderness Extremities: Normal Inspection, Limited Range of Motion Peripheral Pulses: 2+: Dorsalis Pedis (L), Dorsalis Pedis (R) Skin: Warm, Dry, Intact Wound/Incisions: Healing Well, Dressing Dry and Intact, No Drainage Neurological: No New Focal Deficit Psy/Mental Status: Alert, Normal Affect, Normal Mood - Problem List & Annotations (1) Spinal stenosis of lumbar region without neurogenic claudication SNOMED Code(s): 37672441 Code(s): M48.061 - SPINAL STENOSIS, LUMBAR REGION WITHOUT NEUROGENIC KAYLEEN Status: Acute Current Visit: No (2) Spondylolisthesis, lumbar region SNOMED Code(s): 946098863499929 Code(s): M43.16 - SPONDYLOLISTHESIS, LUMBAR REGION Status: Chronic Current Visit: No - Problem List Review Problem List Initiated/Reviewed/Updated: Yes - My Orders Last 24 Hours: My Active Orders 05/20/17 09:00 Ezetimibe [Zetia] 10 mg PO DAILY Hydrochlorothiazide 25 mg PO DAILY 05/20/17 13:00 Dexamethasone 10 mg IVPUSH Q6H 05/20/17 17:15 Insert Urinary Catheter [OM.PC] ONETIME 05/20/17 21:00 Latanoprost [Xalatan 0.005% Ophth Soln] 0 ml EYERT BEDTIME 05/21/17 Breakfast Consistent Carbohydrate Diet [DIET] - Plan Plan:: Assessment: Postoperative day 1 L3-S1 posterior lumbar fusion with interbody placement L4-5. Plan: The patient rates her back pain at 7-10 going up to 8 depending on position. She is not having leg pain. She is very communicative this morning. She looks much better. She has her color back. She was to the edge of the bed last night. We'll see how she does with physical therapy and occupational therapy this morning. She has not walked for a week and a half so this may take a little bit of time for to get back up.
[2017-05-21] MEDS: Ezetimibe 10 MG Tab PO SCH (08:34)
[2017-05-21] MEDS: Acetaminophen/oxyCODONE 325-5 MG Tab PO PRN ×3 (12:02→21:14)
[2017-05-21] MEDS: Magnesium Hydroxide 400 MG/5 ML Susp 30 ML Cup PO PRN (13:52)
[2017-05-21] MEDS: Latanoprost 0.005% Ophth Soln 2.5 ML Bottle EYERT SCH (21:06)
[2017-05-21] MEDS: atorvaSTATin 20 MG Tab PO SCH (21:12)
[2017-05-22] MEDS: Dexamethasone 4 MG/ML 5 ML MDV IVPUSH SCH ×4 (01:19→19:49)
[2017-05-22] MEDS: Acetaminophen/oxyCODONE 325-5 MG Tab PO PRN ×4 (01:19→16:40)
[2017-05-22] MEDS: Magnesium Hydroxide 400 MG/5 ML Susp 30 ML Cup PO PRN (06:50)
[2017-05-22] MEDS: Pantoprazole 40 MG Tab.CR PO SCH (07:39)
[2017-05-22] MEDS: Levothyroxine 75 MCG Tab PO SCH (07:39)
[2017-05-22] MEDS: Diazepam 5 MG Tab PO PRN ×2 (07:40→19:49)
[2017-05-22] MEDS: Docusate Sodium 100 MG Cap PO SCH ×2 (09:02→21:23)
[2017-05-22] MEDS: Sennosides 8.6 MG Tab PO SCH ×2 (09:03→21:23)
[2017-05-22] MEDS: Ezetimibe 10 MG Tab PO SCH (09:03)
[2017-05-22] MEDS: Hydrochlorothiazide 25 MG Tab PO SCH (09:03)
[2017-05-22] MEDS ORDERED: Potassium Chloride 20 MEQ Tab.ER PO ONE (09:15)
--- NOTE | 2017-05-22 09:38 | PCM.PN ---
- General Info Date of Service: 05/22/17 Admission Dx/Problem (Free Text): Patient is POD 2 of a lumbar fusion. She is doing well. She does have a slight foot drop of the right foot. She is working with PT frequently. She is tolerating ambulating. She is on oral pain medication and pain is under control. Functional Status: Reports: Pain Controlled, Tolerating Diet, Ambulating, Urinating - Patient Data Vitals - Most Recent: Last Vital Signs Temp 37.1 C 05/22/17 07:36 Pulse 99 05/22/17 07:36 Resp 16 05/22/17 07:36 BP 125/60 05/22/17 07:36 Pulse Ox 95 05/22/17 07:36 Weight - Most Recent: 160 lb 14.999 oz I&O - Last 24 Hours: Intake & Output 05/21/17 05/22/17 05/22/17 22:59 06:59 14:59 Intake Total 400 540 Output Total 700 Balance -700 400 540 Lab Results Last 24 Hours: Laboratory Results - last 24 hr 05/22/17 05/22/17 Range/Units 05:47 05:47 WBC 11.7 H (4.5-11.0) K/uL RBC 2.75 L (3.30-5.50) M/uL Hgb 9.2 L (12.0-15.0) g/dL Hct 27.4 L (36.0-48.0) % MCV 100 H (80-98) fL MCH 34 H (27-31) pg MCHC 34 (32-36) % Plt Count 176 (150-400) K/uL Neut % (Auto) 88 H (36-66) % Lymph % (Auto) 4 L (24-44) % Nicholas % (Auto) 9 H (2-6) % Eos % (Auto) 0 L (2-4) % Baso % (Auto) 0 (0-1) % Sodium 135 L (140-148) mmol/L Potassium 3.4 L (3.6-5.2) mmol/L Chloride 97 L (100-108) mmol/L Carbon Dioxide 31 (21-32) mmol/L Anion Gap 10.4 (5.0-14.0) mmol/L BUN 16 (7-18) mg/dL Creatinine 0.6 (0.6-1.0) mg/dL Est Cr Clr Drug Dosing 70.08 mL/min Estimated GFR (MDRD) > 60 (>60) Glucose 167 H (74-106) mg/dL Calcium 7.9 L (8.5-10.1) mg/dL Med Orders - Current: Current Medications Al Hydroxide/Mg Hydroxide (Mag-Al Plus) 30 ml PO Q4H PRN PRN Reason: Indigestion Atorvastatin Calcium (Lipitor) 80 mg PO BEDTIME [facility] Last Admin: 05/21/17 21:12 Dose: 80 mg Dexamethasone (Dexamethasone) 10 mg IVPUSH Q6H [facility] Last Admin: 05/22/17 06:34 Dose: 10 mg Diazepam (Valium.) 5 mg PO Q6H PRN PRN Reason: Spasms Last Admin: 05/22/17 07:40 Dose: 5 mg Diphenhydramine HCl (Benadryl) 25 mg PO Q4H PRN PRN Reason: Itching Docusate Sodium (Colace) 100 mg PO BID [facility] Last Admin: 05/22/17 09:02 Dose: 100 mg Ezetimibe (Zetia) 10 mg PO DAILY [facility] Last Admin: 05/22/17 09:03 Dose: 10 mg Hydrochlorothiazide (Hydrochlorothiazide) 25 mg PO DAILY [facility] Last Admin: 05/22/17 09:03 Dose: 25 mg Sodium Chloride (Normal Saline) 1,000 mls @ 125 mls/hr IV ASDIRECTED [facility] Latanoprost (Xalatan 0.005% Ophth Soln) 0 ml EYERT BEDTIME [facility] Last Admin: 05/21/17 21:06 Dose: 1 drop Levothyroxine Sodium (Levothyroxine) 75 mcg PO ACBREAKFAST [facility] Last Admin: 05/22/17 07:39 Dose: 75 mcg Magnesium Hydroxide (Milk Of Magnesia) 30 ml PO DAILY PRN PRN Reason: Constipation Last Admin: 05/22/17 06:50 Dose: 30 ml Ondansetron HCl (Zofran) 8 mg IVPUSH Q4H PRN PRN Reason: Nausea/Vomiting Oxycodone/Acetaminophen (Percocet 325-5 Mg) 2 tab PO Q4H PRN PRN Reason: Pain Last Admin: 05/22/17 06:31 Dose: 2 tab Pantoprazole Sodium (Protonix) 40 mg PO ACBREAKFAST [facility] Last Admin: 05/22/17 07:39 Dose: 40 mg Senna (Senna) 8.6 mg PO BID [facility] Last Admin: 05/22/17 09:03 Dose: 8.6 mg Sodium Chloride (Saline Flush) 10 ml FLUSH ASDIRECTED PRN PRN Reason: Keep Vein Open Zolpidem Tartrate (Ambien) 5 mg PO BEDTIME PRN PRN Reason: Sleep Discontinued Medications Ropivacaine 49.25 ml/Ketorolac Tromethamine 30 mg/Epinephrine HCl 0.5 mg/ Clonidine HCl 80 mcg/ Sodium Chloride 48.45 ml 0 ml INJECT ONETIME ONE Stop: 05/20/17 08:01 Last Admin: 05/20/17 08:39 Dose: 50 ml Dexamethasone (Dexamethasone) 4 mg .ROUTE .STK-MED ONE Stop: 05/20/17 07:31 Fentanyl (Sublimaze) 250 mcg .ROUTE .STK-MED ONE Stop: 05/20/17 07:31 Fentanyl (Sublimaze) 100 mcg .ROUTE .STK-MED ONE Stop: 05/20/17 07:31 Fentanyl (Sublimaze) 100 mcg .ROUTE .STK-MED ONE Stop: 05/20/17 07:31 Fentanyl (Sublimaze) 100 mcg .ROUTE .STK-MED ONE Stop: 05/20/17 07:31 Gelatin (Gelfoam) 2 gm .ROUTE .STK-MED ONE Stop: 05/20/17 12:10 Hydromorphone HCl (Dilaudid) 1 mg IVPUSH Q2H PRN PRN Reason: Pain Stop: 05/21/17 11:34 Last Admin: 05/20/17 17:38 Dose: 1 mg Sodium Chloride (Normal Saline) 1,000 mls @ 75 mls/hr IV .BOLUS [facility] Last Admin: 05/20/17 06:35 Dose: 75 mls/hr Tranexamic Acid 730 mg/ Sodium (Chloride) 57.3 mls @ 229.2 mls/hr IV Q3H [facility] Stop: 05/20/17 11:14 Last Admin: 05/20/17 11:49 Dose: 229.2 mls/hr Cefazolin Sodium/Dextrose 1 gm (/ Premix) 50 mls @ 100 mls/hr IV ONETIME ONE Stop: 05/20/17 08:29 Last Admin: 05/20/17 07:40 Dose: 100 mls/hr Acetaminophen 1,000 mg/ Premix 100 mls @ 400 mls/hr IV NOW ONE Stop: 05/20/17 11:59 Last Admin: 05/20/17 12:07 Dose: 400 mls/hr Cefazolin Sodium/Dextrose 1 gm (/ Premix) 50 mls @ 100 mls/hr IV Q8H [facility] Stop: 05/21/17 06:59 Last Admin: 05/21/17 06:12 Dose: 100 mls/hr Acetaminophen 1,000 mg/ Premix 100 mls @ 400 mls/hr IV Q6H [facility] Stop: 05/21/17 06:01 Last Admin: 05/21/17 05:50 Dose: 400 mls/hr Sodium Chloride (Normal Saline) 1,000 mls @ as directed IV .STK-MED ONE Stop: 05/20/17 07:31 Lactated Ringer's (Ringers, Lactated) 300 mls @ as directed IV .STK-MED ONE Stop: 05/20/17 10:16 Lorazepam (Ativan) 1 mg IVPUSH ONETIME ONE Stop: 05/20/17 12:32 Last Admin: 05/20/17 12:38 Dose: 1 mg Magnesium Hydroxide (Milk Of Magnesia) 30 ml PO BID [facility] Stop: 05/20/17 11:34 Last Admin: 05/20/17 17:43 Dose: 30 ml Midazolam HCl (Versed 1 Mg/Ml) 2 mg .ROUTE .STK-MED ONE Stop: 05/20/17 07:31 Morphine Sulfate (Morphine) 2 mg IVPUSH Q2H PRN PRN Reason: Pain Last Admin: 05/20/17 05:12 Dose: 2 mg Naloxone HCl (Narcan) 0.2 mg IVPUSH ONETIME PRN PRN Reason: Oversedation Naloxone HCl (Narcan) 0.2 mg IVPUSH ASDIRECTED PRN PRN Reason: Oversedation Stop: 05/20/17 23:00 Ondansetron HCl (Zofran) 4 mg IVPUSH Q4H PRN PRN Reason: Nausea/Vomiting Ondansetron HCl (Zofran) 4 mg .ROUTE .STK-MED ONE Stop: 05/20/17 07:31 Oxycodone HCl (Oxycodone) 10 mg PO Q4H PRN PRN Reason: Pain Stop: 05/21/17 11:34 Last Admin: 05/21/17 07:53 Dose: 10 mg Potassium Chloride (Klor-Con M20) 40 meq PO ONETIME ONE Stop: 05/19/17 19:10 Last Admin: 05/19/17 20:34 Dose: 40 meq Potassium Chloride (Klor-Con M20) 40 meq PO ONETIME ONE Stop: 05/22/17 09:16 Povidone Iodine (Betadine 10% Soln) Confirm Administered Dose 1 ml .ROUTE .STK- MED ONE Stop: 05/20/17 07:06 Last Admin: 05/20/17 08:22 Dose: 1 ml Propofol (Diprivan 20 Ml) 200 mg .ROUTE .STK-MED ONE Stop: 05/20/17 07:31 Propofol (Diprivan 100 Ml) 350 mg .ROUTE .STK-MED ONE Stop: 05/20/17 07:31 Rocuronium [place] (Zemuron) 40 mg .ROUTE .STK-MED ONE Stop: 05/20/17 07:31 Senna (Senna) 8.6 mg PO BID PRN PRN Reason: Constipation Thrombin (Thrombin-Jmi) Confirm Administered Dose 15,000 unit .ROUTE .STK-MED ONE Stop: 05/20/17 07:06 Last Admin: 05/20/17 08:22 Dose: 15,000 unit Vancomycin HCl (Vancomycin) Confirm Administered Dose 1 gm .ROUTE .STK-MED ONE Stop: 05/20/17 11:03 - Exam General: Alert, Oriented Back Exam: Normal Inspection Extremities: Normal Inspection, Normal Range of Motion, No Pedal Edema, Normal Capillary Refill Peripheral Pulses: 2+: Dorsalis Pedis (L), Dorsalis Pedis (R) Skin: Warm, Dry, Intact Wound/Incisions: Healing Well, Dressing Dry and Intact Neurological: No New Focal Deficit - Problem List Review Problem List Initiated/Reviewed/Updated: Yes - My Orders Last 24 Hours: My Active Orders 05/21/17 11:34 PT Evaluation and Treatment [CONS] Routine Acetaminophen/oxyCODONE [Percocet 325-5 MG] 2 tab PO Q4H PRN 05/23/17 05:15 BASIC METABOLIC PANEL,BMP [CHEM] DAILY CBC WITH AUTO DIFF [HEME] DAILY 05/24/17 05:15 BASIC METABOLIC PANEL,BMP [CHEM] DAILY CBC WITH AUTO DIFF [HEME] DAILY - Plan Plan:: Assessment: Postoperative day 2 L3-S1 posterior lumbar fusion with interbody placement L4-5. Plan: The patient rates her back pain at 4/10. She is having right leg pain. She is very communicative this morning. She looks much better. She has her color back. She was to the edge of the bed last night. We will try a AFO brace and stairs today and plan on dc tomorrow.
[2017-05-22] MEDS ORDERED: Potassium Chloride 20 MEQ Tab.ER PO SCH (10:00)
[2017-05-22] MEDS ORDERED: Cyanocobalamin (Vitamin B12) 1,000 MCG/ML SDV IM ONE (10:30)
[2017-05-22] MEDS: Gabapentin 100 MG Cap PO SCH ×2 (13:48→21:23)
[2017-05-22] MEDS: atorvaSTATin 20 MG Tab PO SCH (21:24)
[2017-05-22] MEDS: Latanoprost 0.005% Ophth Soln 2.5 ML Bottle EYERT SCH (21:24)
[2017-05-23] MEDS: Dexamethasone 4 MG/ML 5 ML MDV IVPUSH SCH ×3 (01:55→13:53)
[2017-05-23] MEDS: Acetaminophen/oxyCODONE 325-5 MG Tab PO PRN ×3 (03:45→13:24)
[2017-05-23] MEDS: Hydrochlorothiazide 25 MG Tab PO SCH (08:41)
[2017-05-23] MEDS: Pantoprazole 40 MG Tab.CR PO SCH (08:42)
[2017-05-23] MEDS: Levothyroxine 75 MCG Tab PO SCH (08:42)
[2017-05-23] MEDS: Gabapentin 100 MG Cap PO SCH ×2 (08:43→13:53)
[2017-05-23] MEDS: Docusate Sodium 100 MG Cap PO SCH (08:43)
[2017-05-23] MEDS: Sennosides 8.6 MG Tab PO SCH (08:44)
[2017-05-23] MEDS: Ezetimibe 10 MG Tab PO SCH (08:44)
[2017-05-23 08:51] VITALS: BP 142/72
--- NOTE | 2017-05-23 12:08 | PCM.DCSUM1 ---
Discharge Summary - Hospital Course Free Text/Narrative:: Patient is status pod 4 of a lumbar fusion. She is doing well. Her pain is under control with oral pain medication. She is ambulating without any difficulties. She has strength of 4/5 in the right foot which has improved from the day before. She did steps today and did well. - Discharge Data Discharge Date: 05/23/17 Discharge Disposition: Home, Self-Care 01 Condition: Good - Patient Summary/Data Consults: Consultations 05/19/17 17:10 Consult to Physician [CONS] Routine Consulting Provider: Quintin Torres Call Completed to Consulting Physician: Yes Reason for Consult: diabetic medical management 05/20/17 11:34 OT Evaluation and Treatment [CONS] Routine Please Evaluate and Treat. OT Reason for Consult: Strengthening This query below is only for informational purposes and is not editable. Admission Diagnosis/Problem: Lumbar back pain with radiculopathy affecting left lower extremity 05/21/17 11:34 PT Evaluation and Treatment [CONS] Routine Please Evaluate and Treat. PT Reason for Consult: Strengthening This query below is only for informational purposes and is not editable. Admission Diagnosis/Problem: Lumbar back pain with radiculopathy affecting left lower extremity - Patient Instructions Diet: Usual Diet as Tolerated Activity: Apply Ice, As Tolerated Driving: Do Not Drive Showering/Bathing: May Shower, No Tub Bathing/Swimming Wound/Incision Care: Keep Operative Site/Wound Site Clean and Dry, Change Dressing Daily Notify Provider of: Fever, Increased Pain, Swelling and Redness, Drainage, Nausea and/or Vomiting - Discharge Plan Prescriptions/Med Rec: Acetaminophen/oxyCODONE [Percocet 325-5 MG] 1 tab PO Q6HR PRN #90 tablet PRN Reason: Pain Diazepam [Valium] 5 mg PO Q6H PRN #20 tablet PRN Reason: Spasms Home Medications: Home Meds Ezetimibe [Zetia] 10 mg PO DAILY 01/17/13 [History] Latanoprost [Xalatan 0.005% Ophth Soln] 1 drop EYERT DAILY 01/17/13 [History] Levothyroxine 75 mcg PO DAILY 01/17/13 [History] atorvaSTATin [Lipitor] 80 mg PO BEDTIME 01/17/13 [History] Pantoprazole Sodium [Protonix] 20 mg PO DAILY 05/03/17 [History] Cyanocobalamin (Vitamin B12) [Vitamin B12] 1,000 mcg IM .MONTHLY 05/06/17 [ History] Hydrochlorothiazide 25 mg PO DAILY 05/06/17 [History] Gabapentin [Neurontin] 200 mg PO TID 05/21/17 [History] Acetaminophen/oxyCODONE [Percocet 325-5 MG] 1 tab PO Q6HR PRN #90 tablet [Rx] Diazepam [Valium] 5 mg PO Q6H PRN #20 tablet 05/23/17 [Rx] Patient Handouts: Spinal Fusion, Spinal Fusion, Care After Referrals: Ke Helms DO [Physician] - 06/18/17 11:00 am - Discharge Summary/Plan Comment DC Time >30 min.: Yes Discharge Summary/Plan Comment: At this time she is going to go home with home health with PT/OT services. She is to continue to strengthen the right side. She will continue with stool softeners. I will send her home on percocet and valium. She is to follow up with Dr. Helms in 1 month. - Patient Data Vitals - Most Recent: Last Vital Signs Temp 36.8 C 05/23/17 08:48 Pulse 96 05/23/17 08:48 Resp 16 05/23/17 08:48 BP 142/72 H 05/23/17 08:48 Pulse Ox 96 05/23/17 08:48 Weight - Most Recent: 160 lb 14.999 oz Lab Results - Last 24 hrs: Laboratory Results - last 24 hr 05/23/17 05/23/17 Range/Units 05:48 05:48 WBC 10.1 (4.5-11.0) K/uL RBC 2.61 L (3.30-5.50) M/uL Hgb 8.8 L (12.0-15.0) g/dL Hct 26.1 L (36.0-48.0) % MCV 100 H (80-98) fL MCH 34 H (27-31) pg MCHC 34 (32-36) % Plt Count 187 (150-400) K/uL Neut % (Auto) 87 H (36-66) % Lymph % (Auto) 4 L (24-44) % Kane % (Auto) 9 H (2-6) % Eos % (Auto) 0 L (2-4) % Baso % (Auto) 0 (0-1) % Sodium 134 L (140-148) mmol/L Potassium 3.9 (3.6-5.2) mmol/L Chloride 97 L (100-108) mmol/L Carbon Dioxide 32 (21-32) mmol/L Anion Gap 8.9 (5.0-14.0) mmol/L BUN 13 (7-18) mg/dL Creatinine 0.6 (0.6-1.0) mg/dL Est Cr Clr Drug Dosing 70.08 mL/min Estimated GFR (MDRD) > 60 (>60) Glucose 192 H (74-106) mg/dL Calcium 8.0 L (8.5-10.1) mg/dL Med Orders - Current: Current Medications Al Hydroxide/Mg Hydroxide (Mag-Al Plus) 30 ml PO Q4H PRN PRN Reason: Indigestion Atorvastatin Calcium (Lipitor) 80 mg PO BEDTIME [facility] Last Admin: 05/22/17 21:24 Dose: 80 mg Dexamethasone (Dexamethasone) 10 mg IVPUSH Q6H [facility] Last Admin: 05/23/17 08:39 Dose: 10 mg Diazepam (Valium.) 5 mg PO Q6H PRN PRN Reason: Spasms Last Admin: 05/22/17 19:49 Dose: 5 mg Diphenhydramine HCl (Benadryl) 25 mg PO Q4H PRN PRN Reason: Itching Docusate Sodium (Colace) 100 mg PO BID [facility] Last Admin: 05/23/17 08:43 Dose: 100 mg Ezetimibe (Zetia) 10 mg PO DAILY [facility] Last Admin: 05/23/17 08:44 Dose: 10 mg Gabapentin (Neurontin) 200 mg PO TID [facility] Last Admin: 05/23/17 08:43 Dose: 200 mg Hydrochlorothiazide (Hydrochlorothiazide) 25 mg PO DAILY [facility] Last Admin: 05/23/17 08:41 Dose: 25 mg Sodium Chloride (Normal Saline) 1,000 mls @ 125 mls/hr IV ASDIRECTED [facility] Latanoprost (Xalatan 0.005% Ophth Soln) 0 ml EYERT BEDTIME [facility] Last Admin: 05/22/17 21:24 Dose: 1 drop Levothyroxine Sodium (Levothyroxine) 75 mcg PO ACBREAKFAST [facility] Last Admin: 05/23/17 08:42 Dose: 75 mcg Magnesium Hydroxide (Milk Of Magnesia) 30 ml PO DAILY PRN PRN Reason: Constipation Last Admin: 05/22/17 06:50 Dose: 30 ml Ondansetron HCl (Zofran) 8 mg IVPUSH Q4H PRN PRN Reason: Nausea/Vomiting Oxycodone/Acetaminophen (Percocet 325-5 Mg) 2 tab PO Q4H PRN PRN Reason: Pain Last Admin: 05/23/17 08:37 Dose: 2 tab Pantoprazole Sodium (Protonix) 40 mg PO ACBREAKFAST [facility] Last Admin: 05/23/17 08:42 Dose: 40 mg Senna (Senna) 8.6 mg PO BID [facility] Last Admin: 05/23/17 08:44 Dose: 8.6 mg Sodium Chloride (Saline Flush) 10 ml FLUSH ASDIRECTED PRN PRN Reason: Keep Vein Open Zolpidem Tartrate (Ambien) 5 mg PO BEDTIME PRN PRN Reason: Sleep Discontinued Medications Ropivacaine 49.25 ml/Ketorolac Tromethamine 30 mg/Epinephrine HCl 0.5 mg/ Clonidine HCl 80 mcg/ Sodium Chloride 48.45 ml 0 ml INJECT ONETIME ONE Stop: 05/20/17 08:01 Last Admin: 05/20/17 08:39 Dose: 50 ml Cyanocobalamin (Vitamin B12) 1,000 mcg IM ONETIME ONE Stop: 05/22/17 10:31 Last Admin: 05/22/17 10:14 Dose: 1,000 mcg Dexamethasone (Dexamethasone) 4 mg .ROUTE .STK-MED ONE Stop: 05/20/17 07:31 Fentanyl (Sublimaze) 250 mcg .ROUTE .STK-MED ONE Stop: 05/20/17 07:31 Fentanyl (Sublimaze) 100 mcg .ROUTE .STK-MED ONE Stop: 05/20/17 07:31 Fentanyl (Sublimaze) 100 mcg .ROUTE .STK-MED ONE Stop: 05/20/17 07:31 Fentanyl (Sublimaze) 100 mcg .ROUTE .STK-MED ONE Stop: 05/20/17 07:31 Gelatin (Gelfoam) 2 gm .ROUTE .STK-MED ONE Stop: 05/20/17 12:10 Hydromorphone HCl (Dilaudid) 1 mg IVPUSH Q2H PRN PRN Reason: Pain Stop: 05/21/17 11:34 Last Admin: 05/20/17 17:38 Dose: 1 mg Sodium Chloride (Normal Saline) 1,000 mls @ 75 mls/hr IV .BOLUS [facility] Last Admin: 05/20/17 06:35 Dose: 75 mls/hr Tranexamic Acid 730 mg/ Sodium (Chloride) 57.3 mls @ 229.2 mls/hr IV Q3H [facility] Stop: 05/20/17 11:14 Last Admin: 05/20/17 11:49 Dose: 229.2 mls/hr Cefazolin Sodium/Dextrose 1 gm (/ Premix) 50 mls @ 100 mls/hr IV ONETIME ONE Stop: 05/20/17 08:29 Last Admin: 05/20/17 07:40 Dose: 100 mls/hr Acetaminophen 1,000 mg/ Premix 100 mls @ 400 mls/hr IV NOW ONE Stop: 05/20/17 11:59 Last Admin: 05/20/17 12:07 Dose: 400 mls/hr Cefazolin Sodium/Dextrose 1 gm (/ Premix) 50 mls @ 100 mls/hr IV Q8H [facility] Stop: 05/21/17 06:59 Last Admin: 05/21/17 06:12 Dose: 100 mls/hr Acetaminophen 1,000 mg/ Premix 100 mls @ 400 mls/hr IV Q6H [facility] Stop: 05/21/17 06:01 Last Admin: 05/21/17 05:50 Dose: 400 mls/hr Sodium Chloride (Normal Saline) 1,000 mls @ as directed IV .STK-MED ONE Stop: 05/20/17 07:31 Lactated Ringer's (Ringers, Lactated) 300 mls @ as directed IV .STK-MED ONE Stop: 05/20/17 10:16 Lorazepam (Ativan) 1 mg IVPUSH ONETIME ONE Stop: 05/20/17 12:32 Last Admin: 05/20/17 12:38 Dose: 1 mg Magnesium Hydroxide (Milk Of Magnesia) 30 ml PO BID [facility] Stop: 05/20/17 11:34 Last Admin: 05/20/17 17:43 Dose: 30 ml Midazolam HCl (Versed 1 Mg/Ml) 2 mg .ROUTE .STK-MED ONE Stop: 05/20/17 07:31 Morphine Sulfate (Morphine) 2 mg IVPUSH Q2H PRN PRN Reason: Pain Last Admin: 05/20/17 05:12 Dose: 2 mg Naloxone HCl (Narcan) 0.2 mg IVPUSH ONETIME PRN PRN Reason: Oversedation Naloxone HCl (Narcan) 0.2 mg IVPUSH ASDIRECTED PRN PRN Reason: Oversedation Stop: 05/20/17 23:00 Ondansetron HCl (Zofran) 4 mg IVPUSH Q4H PRN PRN Reason: Nausea/Vomiting Ondansetron HCl (Zofran) 4 mg .ROUTE .STK-MED ONE Stop: 05/20/17 07:31 Oxycodone HCl (Oxycodone) 10 mg PO Q4H PRN PRN Reason: Pain Stop: 05/21/17 11:34 Last Admin: 05/21/17 07:53 Dose: 10 mg Potassium Chloride (Klor-Con M20) 40 meq PO ONETIME ONE Stop: 05/19/17 19:10 Last Admin: 05/19/17 20:34 Dose: 40 meq Potassium Chloride (Klor-Con M20) 40 meq PO ONETIME ONE Stop: 05/22/17 09:16 Last Admin: 05/22/17 10:14 Dose: 40 meq Povidone Iodine (Betadine 10% Soln) Confirm Administered Dose 1 ml .ROUTE .STK- MED ONE Stop: 05/20/17 07:06 Last Admin: 05/20/17 08:22 Dose: 1 ml Propofol (Diprivan 20 Ml) 200 mg .ROUTE .STK-MED ONE Stop: 05/20/17 07:31 Propofol (Diprivan 100 Ml) 350 mg .ROUTE .STK-MED ONE Stop: 05/20/17 07:31 Rocuronium [place] (Zemuron) 40 mg .ROUTE .STK-MED ONE Stop: 05/20/17 07:31 Senna (Senna) 8.6 mg PO BID PRN PRN Reason: Constipation Thrombin (Thrombin-Jmi) Confirm Administered Dose 15,000 unit .ROUTE .STK-MED ONE Stop: 05/20/17 07:06 Last Admin: 05/20/17 08:22 Dose: 15,000 unit Vancomycin HCl (Vancomycin) Confirm Administered Dose 1 gm .ROUTE .Coravin-FNZ ONE Stop: 05/20/17 11:03 - Exam General: Reports: Alert Back Exam: Reports: Normal Inspection Extremities: Normal Inspection, Normal Range of Motion, Non-Tender, No Pedal Edema, Normal Capillary Refill, Limited Range of Motion (strength 4/5 on the right lower extremity. ) Skin: Reports: Warm, Dry, Intact Wound/Incisions: Reports: Healing Well, Dressing Dry and Intact Neurological: Reports: No New Focal Deficit Psy/Mental Status: Reports: Alert *Q Meaningful Use (DIS) - VTE *Q VTE Criteria *Q: - Stroke *Q Stroke Criteria *Q: - AMI *Q AMI Criteria *Q:
== END 2017-05-23 15:02 | disposition home or self-care (01) | DRG 460 ==
LOC: JP.MS 16:52
PROVIDERS: ADMIT Orthopaedic Surgery; ATTEND Orthopaedic Surgery
PROC: 0SG10AJ Fusion of 2 or more Lumbar Vertebral Joints with Interbody Fusion Device, Posterior Approach, Anterior Column, Open Approach (ICD-10-PCS; principal; 2017-05-20)
PROC: 0QB00ZZ Excision of Lumbar Vertebra, Open Approach (ICD-10-PCS; 2017-05-20)
PROC: 00QT0ZZ Repair Spinal Meninges, Open Approach (ICD-10-PCS; 2017-05-20)
DX: M43.16 Spondylolisthesis, lumbar region (principal); G97.41 Accidental puncture or laceration of dura during a procedure; M48.061 Spinal stenosis, lumbar region without neurogenic claudication; M54.16 Radiculopathy, lumbar region; R26.2 Difficulty in walking, not elsewhere classified; Z72.89 Other problems related to lifestyle; R74.0 Nonspecific elevation of levels of transaminase and lactic acid dehydrogenase [LDH]; E78.5 Hyperlipidemia, unspecified; E87.6 Hypokalemia; I10 Essential (primary) hypertension; E03.9 Hypothyroidism, unspecified; G89.29 Other chronic pain; K21.9 Gastro-esophageal reflux disease without esophagitis; Z87.891 Personal history of nicotine dependence; K76.0 Fatty (change of) liver, not elsewhere classified
CPT/HCPCS: 36415; 76001; 76705; 76705-26; 80048; 80053; 82962; 85025; 86850; 86900; 86901; 93005; 94762; 97110-GP; 97116-GP; 97162-GP; 97165-GO; 97530-GP; 97535-GP; 97760-GP; A9270-GY; C1713; J0131; J0171; J0690; J0735; J1100; J1170; J1885; J2060; J2250; J2270; J2405; J2704; J2795; J3010; J3370; J3420; J3490; J7030; J7050; J7120

== ENCOUNTER 2020-06-08 10:39 | Emergency (ER) | payer MEDICARE, OTHER ==
[2020-06-08] MEDS ORDERED: Sodium Chloride 0.9% 10 ML Syringe FLUSH PRN (11:24)
[2020-06-08] MEDS ORDERED: Ondansetron 4 MG/2 ML SDV IVPUSH ONE (11:24)
--- NOTE | 2020-06-08 11:24 | EDM.PDOC ---
ED HPI GENERAL MEDICAL PROBLEM - General Chief Complaint: General Stated Complaint: RAPID HEART RATE AND DIZZY Time Seen by Provider: 06/08/20 11:22 Source of Information: Reports: Patient, Family History Limitations: Reports: No Limitations - History of Present Illness INITIAL COMMENTS - FREE TEXT/NARRATIVE: pt arrived with histor of a rapid pulse and dizziness. She felt nauseated when she did move. Onset: Today, Sudden Duration: Hour(s): Location: Reports: Head, Chest, Generalized Associated Symptoms: Reports: Other ( rapid heart rate. ) Lower Back Pain Score (Numeric/FACES): 3 - Related Data Allergies Allergy/AdvReac Type Severity Reaction Status Date / Time No Known Allergies Allergy Verified 01/04/20 11:13 Home Meds: Home Meds Ezetimibe [Zetia] 10 mg PO DAILY 01/17/13 [History] Latanoprost [Xalatan 0.005% Ophth Soln] 1 drop EYERT DAILY 01/17/13 [History] Levothyroxine 75 mcg PO DAILY 01/17/13 [History] atorvaSTATin [Lipitor] 80 mg PO BEDTIME 01/17/13 [History] Cyanocobalamin (Vitamin B12) [Vitamin B12] 1,000 mcg IM .MONTHLY 05/06/17 [History] hydroCHLOROthiazide [Hydrochlorothiazide] 25 mg PO DAILY 05/06/17 [History] Acetaminophen [Tylenol Extra Strength] 500 mg PO TID 09/15/19 [History] Losartan Potassium 25 mg PO DAILY 09/15/19 [History] Turmeric Root Extract [Turmeric] 500 mg PO BID 09/15/19 [History] Meloxicam 15 mg PO ASDIRECTED PRN 11/11/19 [History] Cyclobenzaprine [Flexeril] 10 mg PO TID PRN #21 tab 02/27/20 [Rx] Past Medical History HEENT History: Reports: Other (See Below) Other HEENT History: glasses, expecting cataract surgery in the spring Cardiovascular History: Reports: Afib, Other (See Below) Respiratory History: Reports: Bronchitis, Recurrent, Other (See Below) Other Respiratory History: bronchitis on occasion Gastrointestinal History: Reports: GERD Musculoskeletal History: Reports: Other (See Below) Other Musculoskeletal History: low back and right hip pain Psychiatric History: Reports: None Endocrine/Metabolic History: Reports: Hypothyroidism - Infectious Disease History Infectious Disease History: Reports: Other (See Below) Other Infectious Disease History: liver absess in 2009 - Past Surgical History HEENT Surgical History: Reports: Tonsillectomy Respiratory Surgical History: Reports: None GI Surgical History: Reports: Cholecystectomy Female Surgical History: Reports: Cystectomy, Hysterectomy Musculoskeletal Surgical History: Reports: Other (See Below) Other Musculoskeletal Surgeries/Procedures:: s/p TLIF L4-L5. right femur plate. left wrist Social & Family History - Family History HEENT: Reports: None Respiratory: Reports: None GI: Reports: None OBGYN: Reports: Hematologic: Reports: None Oncologic: Reports: Pancreatic, Thyroid - Tobacco Use Tobacco Use Status *Q: Former Tobacco User Used Tobacco, but Quit: Yes Month/Year Tobacco Last Used: many years ago - Caffeine Use Caffeine Use: Reports: Coffee - Recreational Drug Use Recreational Drug Use: No ED ROS GENERAL - Review of Systems Review Of Systems: See Below Constitutional: Reports: Weakness, Diaphoresis, Other ( dizziness) HEENT: Reports: Vertigo Respiratory: Reports: Shortness of Breath Cardiovascular: Reports: Palpitations Endocrine: Reports: No Symptoms GI/Abdominal: Reports: Nausea : Reports: No Symptoms Musculoskeletal: Reports: No Symptoms Skin: Reports: No Symptoms Neurological: Reports: Dizziness, Other ( as she was followed this seemed more like vertigo. ) ED EXAM, GENERAL - Physical Exam Exam: See Below Free Text/Narrative:: pt arrived concerned that she is tachy and had 3 episodes of nearly passing out. She did not have chest pain. She was sob and did have a low o2 sat Exam Limited By: No Limitations General Appearance: Alert, Anxious, Mild Distress, Other (pupils equal reactive. no headache) Ears: Normal TMs Nose: Normal Inspection Throat/Mouth: Normal Inspection Head: Atraumatic, Other (no carotid bruits) Neck: Normal Inspection Respiratory/Chest: No Respiratory Distress Cardiovascular: Regular Rate, Rhythm, Other ( rate was 115) GI/Abdominal: Soft, Non-Tender Rectal (Female) Exam: Deferred Back Exam: Normal Inspection Extremities: Normal Inspection, Other ( no tenderness or swelling. ) Neurological: Alert, Oriented, Normal Cognition Psychiatric: Normal Affect Course - Vital Signs Last Recorded V/S: Last Vital Signs Temp 36.2 C 06/08/20 10:52 Pulse 85 06/08/20 12:32 Resp 18 06/08/20 12:32 BP 101/54 L 06/08/20 12:32 Pulse Ox 92 L 06/08/20 12:32 Orthostatic Blood Pressure [ 105/63 Standing] Orthostatic Blood Pressure [ 116/65 Sitting] Orthostatic Blood Pressure [ 117/62 Supine] - Orders/Labs/Meds Orders: Active Orders 24 hr Category Date Time Status Orthostatic Vital Signs [RC] ASDIRECTED Care 06/08/20 11:20 Active Chest 1V Frontal [CR] Stat Exams 06/08/20 11:20 Taken Sodium Chloride 0.9% [Normal Saline] 1,000 ml Med 06/08/20 14:00 Active IV ASDIRECTED Sodium Chloride 0.9% [Saline Flush] Med 06/08/20 11:24 Active 10 ml FLUSH ASDIRECTED PRN Saline Lock Insert [OM.PC] Routine Oth 06/08/20 11:24 Ordered Medication Orders Sodium Chloride (Normal Saline) 1,000 mls @ 999 mls/hr IV ASDIRECTED CARMEN Last Admin: 06/08/20 14:01 Dose: 999 mls/hr Documented by: SAMPSON Sodium Chloride (Saline Flush) 10 ml FLUSH ASDIRECTED PRN PRN Reason: Keep Vein Open Last Admin: 06/08/20 11:43 Dose: 10 ml Documented by: SAMPSON Labs: Laboratory Tests 06/08/20 06/08/20 06/08/20 Range/Units 11:00 11:00 11:00 WBC 5.8 (4.5-11.0) K/uL RBC 4.23 (3.30-5.50) M/uL Hgb 14.6 D (12.0-15.0) g/dL Hct 43.3 (36.0-48.0) % MCV 102 H (80-98) fL MCH 35 H (27-31) pg MCHC 34 (32-36) % Plt Count 270 (150-400) K/uL Neut % (Auto) 66 (36-66) % Lymph % (Auto) 23 L (24-44) % [place] % (Auto) 11 H (2-6) % Eos % (Auto) 0 L (2-4) % Baso % (Auto) 0 (0-1) % D-Dimer, Quantitative (0.0-500.0) ng/mL Sodium 135 L (140-148) mmol/L Potassium 3.4 L (3.6-5.2) mmol/L Chloride 94 L (100-108) mmol/L Carbon Dioxide 28 (21-32) mmol/L Anion Gap 16.4 H (5.0-14.0) mmol/L BUN 16 (7-18) mg/dL Creatinine 0.9 (0.6-1.0) mg/dL Est Cr Clr Drug Dosing 42.72 mL/min Estimated GFR (MDRD) > 60 (>60) Glucose 188 H (74-106) mg/dL Calcium 9.1 (8.5-10.1) mg/dL Total Bilirubin 0.9 (0.2-1.0) mg/dL AST 28 (15-37) U/L ALT 36 D (12-78) U/L Alkaline Phosphatase 65 (46-116) U/L Troponin I < 0.017 (0.000-0.056) ng/mL Total Protein 7.0 (6.4-8.2) g/dL Albumin 3.9 (3.4-5.0) g/dL Globulin 3.1 (2.3-3.5) g/dL Albumin/Globulin Ratio 1.3 (1.2-2.2) TSH, Ultra Sensitive (0.358-3.740) uIU/mL Urine Color (YELLOW) Urine Appearance (CLEAR) Urine pH (5.0-8.0) Ur Specific [place] (1.008-1.030) Urine Protein (NEGATIVE) mg/dL Urine Glucose (UA) (NEGATIVE) mg/dL Urine Ketones (NEGATIVE) mg/dL Urine Occult Blood (NEGATIVE) Urine Nitrite (NEGATIVE) Urine Bilirubin (NEGATIVE) Urine Urobilinogen (0.2-1.0) EU/dL Ur Leukocyte Esterase (NEGATIVE) Urine RBC (0-5) Urine WBC (0-5) Ur Epithelial Cells Amorphous Sediment Urine Bacteria Urine Mucus Influenza Type A RNA (NEGATIVE) RSV RNA (INAAT) (NEGATIVE) Influenza Type B RNA (NEGATIVE) SARS-CoV-2 RNA (SHARMILA) (NEGATIVE) 06/08/20 06/08/20 06/08/20 Range/Units 11:00 11:00 11:06 WBC (4.5-11.0) K/uL RBC (3.30-5.50) M/uL Hgb (12.0-15.0) g/dL Hct (36.0-48.0) % MCV (80-98) fL MCH (27-31) pg MCHC (32-36) % Plt Count (150-400) K/uL Neut % (Auto) (36-66) % Lymph % (Auto) (24-44) % [place] % (Auto) (2-6) % Eos % (Auto) (2-4) % Baso % (Auto) (0-1) % D-Dimer, Quantitative 1031.34 H (0.0-500.0) ng/mL Sodium (140-148) mmol/L Potassium (3.6-5.2) mmol/L Chloride (100-108) mmol/L Carbon Dioxide (21-32) mmol/L Anion Gap (5.0-14.0) mmol/L BUN (7-18) mg/dL Creatinine (0.6-1.0) mg/dL Est Cr Clr Drug Dosing mL/min Estimated GFR (MDRD) (>60) Glucose (74-106) mg/dL Calcium (8.5-10.1) mg/dL Total Bilirubin (0.2-1.0) mg/dL AST (15-37) U/L ALT (12-78) U/L Alkaline Phosphatase (46-116) U/L Troponin I (0.000-0.056) ng/mL Total Protein (6.4-8.2) g/dL Albumin (3.4-5.0) g/dL Globulin (2.3-3.5) g/dL Albumin/Globulin Ratio (1.2-2.2) TSH, Ultra Sensitive 1.166 (0.358-3.740) uIU/mL Urine Color (YELLOW) Urine Appearance (CLEAR) Urine pH (5.0-8.0) Ur Specific [place] (1.008-1.030) Urine Protein (NEGATIVE) mg/dL Urine Glucose (UA) (NEGATIVE) mg/dL Urine Ketones (NEGATIVE) mg/dL Urine Occult Blood (NEGATIVE) Urine Nitrite (NEGATIVE) Urine Bilirubin (NEGATIVE) Urine Urobilinogen (0.2-1.0) EU/dL Ur Leukocyte Esterase (NEGATIVE) Urine RBC (0-5) Urine WBC (0-5) Ur Epithelial Cells Amorphous Sediment Urine Bacteria Urine Mucus Influenza Type A RNA Negative (NEGATIVE) RSV RNA (INAAT) Negative (NEGATIVE) Influenza Type B RNA Negative (NEGATIVE) SARS-CoV-2 RNA (SHARMILA) Negative (NEGATIVE) 06/08/20 Range/Units 14:02 WBC (4.5-11.0) K/uL RBC (3.30-5.50) M/uL Hgb (12.0-15.0) g/dL Hct (36.0-48.0) % MCV (80-98) fL MCH (27-31) pg MCHC (32-36) % Plt Count (150-400) K/uL Neut % (Auto) (36-66) % Lymph % (Auto) (24-44) % [place] % (Auto) (2-6) % Eos % (Auto) (2-4) % Baso % (Auto) (0-1) % D-Dimer, Quantitative (0.0-500.0) ng/mL Sodium (140-148) mmol/L Potassium (3.6-5.2) mmol/L Chloride (100-108) mmol/L Carbon Dioxide (21-32) mmol/L Anion Gap (5.0-14.0) mmol/L BUN (7-18) mg/dL Creatinine (0.6-1.0) mg/dL Est Cr Clr Drug Dosing mL/min Estimated GFR (MDRD) (>60) Glucose (74-106) mg/dL Calcium (8.5-10.1) mg/dL Total Bilirubin (0.2-1.0) mg/dL AST (15-37) U/L ALT (12-78) U/L Alkaline Phosphatase (46-116) U/L Troponin I (0.000-0.056) ng/mL Total Protein (6.4-8.2) g/dL Albumin (3.4-5.0) g/dL Globulin (2.3-3.5) g/dL Albumin/Globulin Ratio (1.2-2.2) TSH, Ultra Sensitive (0.358-3.740) uIU/mL Urine Color Yellow (YELLOW) Urine Appearance Clear (CLEAR) Urine pH 7.0 (5.0-8.0) Ur Specific [place] 1.010 (1.008-1.030) Urine Protein Negative (NEGATIVE) mg/dL Urine Glucose (UA) Negative (NEGATIVE) mg/dL Urine Ketones Negative (NEGATIVE) mg/dL Urine Occult Blood Negative (NEGATIVE) Urine Nitrite Negative (NEGATIVE) Urine Bilirubin Negative (NEGATIVE) Urine Urobilinogen 0.2 (0.2-1.0) EU/dL Ur Leukocyte Esterase Negative (NEGATIVE) Urine RBC 0-5 (0-5) Urine WBC 0-5 (0-5) Ur Epithelial Cells Rare Amorphous Sediment Not seen Urine Bacteria Rare Urine Mucus Not seen Influenza Type A RNA (NEGATIVE) RSV RNA (INAAT) (NEGATIVE) Influenza Type B RNA (NEGATIVE) SARS-CoV-2 RNA (SHARMILA) (NEGATIVE) Meds: Medications Generic Name Dose Route Start Last Admin Trade Name Freq PRN Reason Stop Dose Admin Sodium Chloride 1,000 mls @ 999 mls/hr 06/08/20 14:00 06/08/20 14:01 Normal Saline IV 999 mls/hr ASDIRECTED CARMEN Administration Sodium Chloride 10 ml 06/08/20 11:24 06/08/20 11:43 Saline Flush FLUSH 10 ml ASDIRECTED PRN Administration Keep Vein Open Discontinued Medications Generic Name Dose Route Start Last Admin Trade Name Freq PRN Reason Stop Dose Admin Acetaminophen 650 mg 06/08/20 13:47 06/08/20 14:01 Tylenol PO 06/08/20 13:48 650 mg NOW ONE Administration Acetaminophen Confirm 06/08/20 14:00 Tylenol Administered 06/08/20 14:01 Dose 325 mg .ROUTE .STK-MED ONE Sodium Chloride 100 mls @ 3.5 mls/sec 06/08/20 12:45 06/08/20 12:52 Normal Saline IV 06/08/20 12:46 3.5 mls/sec ASDIRECTED CARMEN Administration Iopamidol 100 ml 06/08/20 12:45 06/08/20 12:52 Isovue-370 (76%) IV 06/08/20 12:46 100 ml . DIRECTED CARMEN Administration Meclizine HCl 25 mg 06/08/20 13:20 06/08/20 13:28 Antivert PO 06/08/20 13:21 25 mg ONETIME ONE Administration Ondansetron HCl 4 mg 06/08/20 11:24 06/08/20 11:43 Zofran IVPUSH 06/08/20 11:25 4 mg ONETIME ONE Administration Sodium Chloride 10 ml 06/08/20 12:42 06/08/20 12:52 Saline Flush FLUSH 06/08/20 12:43 10 ml ONETIME ONE Administration - Re-Assessments/Exams Free Text/Narrative Re-Assessment/Exam: 06/08/20 14:54 pt had a elevated ddimer and low o2 sats. . She had a cat scan of the chest--angio that was neg. Her vertigo has gradually gotten better and she remains in sinus rhythm She may later need a event recorder. She did habe bp in the 90 systolic and she was given a liter of fluid and did feel better. Departure - Departure Time of Disposition: 14:47 Disposition: Home, Self-Care 01 Condition: Fair Clinical Impression: Vertigo, Dehydration, Palpitation, Hypotension - Discharge Information Referrals: PCP,None [Primary Care Provider] - Forms: ED Department Discharge Care Plan Goals: push fluids, low activity, antivert 25 mg tid for the next 2 days, appt with Dr mitchell thu or thursday, hold losarten for the next 2 days. then resume. Sepsis Event Note (ED) - Evaluation Sepsis Screening Result: No Definite Risk - Focused Exam Vital Signs: Vital Signs Temp Pulse Resp BP Pulse Ox 06/08/20 12:32 85 18 101/54 L 92 L 06/08/20 12:01 92 20 106/51 L 93 L 06/08/20 11:32 99 20 100/48 L 97 06/08/20 10:52 36.2 C 110 H 22 H 166/82 H 96 06/08/20 10:50 36.2 C 114 H 17 166/82 H 95 - My Orders Last 24 Hours: My Active Orders 06/08/20 11:20 Orthostatic Vital Signs [RC] ASDIRECTED Chest 1V Frontal [CR] Stat 06/08/20 11:24 Sodium Chloride 0.9% [Saline Flush] 10 ml FLUSH ASDIRECTED PRN Saline Lock Insert [OM.PC] Routine 06/08/20 14:00 Sodium Chloride 0.9% [Normal Saline] 1,000 ml IV ASDIRECTED - Assessment/Plan Last 24 Hours: My Active Orders 06/08/20 11:20 Orthostatic Vital Signs [RC] ASDIRECTED Chest 1V Frontal [CR] Stat 06/08/20 11:24 Sodium Chloride 0.9% [Saline Flush] 10 ml FLUSH ASDIRECTED PRN Saline Lock Insert [OM.PC] Routine 06/08/20 14:00 Sodium Chloride 0.9% [Normal Saline] 1,000 ml IV ASDIRECTED
[2020-06-08 12:28] LABS: CORONAVIRUS COVID-19 NAA NEGATIVE (NEGATIVE)
[2020-06-08] MEDS ORDERED: Sodium Chloride 0.9% 10 ML Syringe FLUSH ONE (12:42)
[2020-06-08 12:44] VITALS: BP 101/54; PULSE 85
[2020-06-08] MEDS ORDERED: Sodium Chloride 0.9% 100 ML IV SCH (12:45)
[2020-06-08] MEDS ORDERED: Iopamidol 755 Mg/ML 100 ML Bottle IV SCH (12:45)
[2020-06-08] MEDS ORDERED: Meclizine 25 MG Tab PO ONE (13:20)
--- NOTE | 2020-06-08 13:35 | CRLCT ---
INDICATION: Dyspnea. Rapid cardiac rhythm COMPARISON: None TECHNIQUE: : CT examination of the chest was performed with the uneventful intravenous administration of 100 cc of Isovue 370 while thin axial sections were obtained from above the apices of the lungs to the lung bases. Please note that all CT scans at this facility use dose modulation, iterative reconstruction, and/or weight-based dosing when appropriate to reduce radiation dose to as low as reasonably achievable. FINDINGS: : HEART and MEDIASTINUM: Heart size normal. Atherosclerotic vascular calcifications. No mediastinal or hilar adenopathy or mass. 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 The oxygenated blood from the left upper lobe abnormally returns to the systemic circulation via the left brachiocephalic vein rather than the superior left pulmonary vein of the left atrium. This constitutes a shunt. This a congenital lesion. PULMONARY ARTERIAL CIRCULATION: There is no visible intraluminal filling defect to suggest pulmonary embolus. LUNGS: Minimal bibasilar atelectasis. PLEURAL SPACES: There is no pleural effusion, pneumothorax or pleural based mass. VISUALIZED UPPER ABDOMEN: No acute upper abdominal abnormalities OSSEOUS STRUCTURES: Age-appropriate appearance. No acute fracture or destructive process. TUBES and LINES: None. IMPRESSION: 1. There is no evidence of pulmonary embolus. 2. 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 Please review the comment. 3. Minimal basilar atelectasis. Please note that all CT scans at this facility use dose modulation, iterative reconstruction, and/or weight-based dosing when appropriate to reduce radiation dose to as low as reasonably achievable. Dictated by Constantine Atwood MD @ Jun 08 2020 1:27PM Signed by Dr. Constantine Atwood @ Jun 08 2020 1:34PM
[2020-06-08] MEDS ORDERED: Acetaminophen 325 MG Tab PO ONE (13:47)
[2020-06-08] MEDS ORDERED: Acetaminophen 325 MG Tab ONE (14:00)
[2020-06-08] MEDS ORDERED: Sodium Chloride 0.9% 1,000 ML IV SCH (14:00)
--- NOTE | 2020-06-11 10:05 | CR ---
CHEST: Portable 06/08/2020 at 11:38 AM CLINICAL HISTORY:SOB COMPARISON:2009 FINDINGS: There is patchy density in the right infrahilar region which is suspect for pneumonic infiltrate. Heart size and pulmonary vascularity are normal. There is atelectatic ossification aorta. IMPRESSION: Minimal patchy right infrahilar density. This may represent some chronic change or patchy atelectasis with superimposed rib calcification.
== END 2020-06-08 15:02 | disposition home or self-care (01) ==
LOC: JP.ED 10:39
DX: E86.0 Dehydration (principal); I95.9 Hypotension, unspecified; I48.91 Unspecified atrial fibrillation; E03.9 Hypothyroidism, unspecified; Z20.822 Contact with and (suspected) exposure to COVID-19; Z79.899 Other long term (current) drug therapy; Z87.891 Personal history of nicotine dependence
CPT/HCPCS: 0241U; 36415; 71045; 71045-26; 71275; 80053; 81001; 84443; 84484; 85025; 85379; 93010; 96374; 99284; 99285-25; A9270-GY; J2405; J7030; Q9967

== ENCOUNTER 2023-01-26 06:32 | Day surgery (SDC) | payer MEDICARE, OTHER ==
[2023-01-26] MEDS ORDERED: Bupivacaine 0.5% 30 ML SDV ONE (06:36)
[2023-01-26 06:57] LABS: HEMATOCRIT 34.7 % (34.3-46.0); HEMOGLOBIN 11.3 g/dL (11.2-15.5); MEAN CORPUSCULAR HEMOGLOBIN 34.7 pg (31.6-35.5); MEAN CORPUSCULAR HGB CONC 32.6 g/dL (31.6-35.5); MEAN CORPUSCULAR VOLUME 106.4 fL (81.4-99.0); RED BLOOD CELL COUNT 3.26 M/uL (3.77-5.24); WHITE BLOOD CELL COUNT,WBC 6.7 K/uL (3.2-11.0)
[2023-01-26] MEDS ORDERED: Lactated Ringers 1,000 ML IV SCH (07:00)
[2023-01-26] MEDS ORDERED: Lidocaine 0.5% 50 ML SDV ONE (07:01)
[2023-01-26] MEDS ORDERED: Propofol 200 MG/20 ML SDV ONE (07:01)
[2023-01-26] MEDS ORDERED: fentaNYL 100 MCG/2 ML SDV ONE (07:02)
[2023-01-26 07:11] LABS: BLOOD UREA NITROGEN,BUN 28 mg/dL (7-18); CALCIUM 8.5 mg/dL (8.5-10.1); CARBON DIOXIDE,CO2 29 mmol/L (21-32); CHLORIDE,CL 99 mmol/L (100-108); CREATININE 0.9 mg/dL (0.6-1.0); ESTIMATED GFR 66 mL/min (>60); GLUCOSE RANDOM 136 mg/dL (74-106); POTASSIUM,K 3.6 mmol/L (3.6-5.2); SODIUM,NA 137 mmol/L (140-148)
[2023-01-26 07:12] LABS: ANION GAP 12.6 mmol/L (5.0-14.0)
[2023-01-26] MEDS ORDERED: ceFAZolin 1 GM in Premix Bag 1 BAG IV ONE (07:30)
[2023-01-26] MEDS ORDERED: Acetaminophen/HYDROcodone 325-5 MG Tab PO PRN (09:24)
[2023-01-26 10:23] VITALS: BP 138/57; PULSE 73
== END 2023-01-26 10:50 | disposition home or self-care (01) ==
LOC: JP.SDS 06:32
PROVIDERS: ATTEND Specialist
DX: G56.02 Carpal tunnel syndrome, left upper limb (principal); K21.9 Gastro-esophageal reflux disease without esophagitis; E03.9 Hypothyroidism, unspecified; G47.33 Obstructive sleep apnea (adult) (pediatric); E11.9 Type 2 diabetes mellitus without complications
CPT/HCPCS: 36415; 64721; 80048; 85027; A9270; J0690; J2704; J3010; J3490; J7120